=== PATIENT | female | born 1990 | race Caucasian/White ===

== ENCOUNTER 2020-07-30 07:18 | Outpatient (CLI) | payer OTHER, SELFPAY ==
--- NOTE | ~2020-07-30 | XR_ITS ---
XR hysterosalpingogram DATE: 07/30/2020 09:03 INDICATION: Fertility workup TECHNIQUE: Fluoroscopy was performed during a hysterosalpingogram procedure performed by the zeke martinez traffic inspector. COMPARISON: None FINDINGS: There is uterine deformity consistent with bicornuate or less likely septate uterus. Both fallopian tubes are opacified, of normal caliber and there is bilateral free peritoneal spillage . 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 Reviewed, dictated and finalized at [facility].
[2020-07-30 08:05] LABS: Beta HCG Quantitative < 2.39 mIU/ML
--- NOTE | 2020-07-30 08:54 | PM.PROC ---
Procedure Note - Detailed Date of procedure: 07/30/20 Pre-op diagnosis: infertility Post-op diagnosis: same Procedure performed: Hysterosalpingogram Description of procedure: Patient was on the fluoroscopic table. A speculum was placed in the vagina. The cervix was cleaned with Betadine. A catheter was placed the intrauterine cavity and the balloon was inflated at the tip of the catheter. The radiologist was present and began to capture images. Radiopaque dye was then instilled into the intrauterine cavity. The above findings were noted. When dye injection was completed. The balloon catheter was collapsed and the catheter was withdrawn. A final image the into atrial cavity was captured. The speculum had been was drawn prior to injection of the dye. Speculum and catheter were removed completely. The procedure was terminated. Anesthesia: none Surgeon: Angelique Jones MD Estimated blood loss (mL): 0 Drains: No Packing: No Pathology: none sent Complications: No immediate complications Condition: stable Findings: Both tubes were patent, radiopaque dye was observed spilling into the pelvic cavity bilaterally at the end of the tubes. There was a normal-appearing endometrial cavity..
== END 2020-07-30 07:19 | disposition home or self-care (01) ==
PROVIDERS: Visit Provider Obstetrics & Gynecology
DX: N97.9 Female infertility, unspecified (principal)
CPT/HCPCS: 36415; 58340; 74740; 84702; Q9966

== ENCOUNTER 2022-02-28 16:26 | Outpatient (RCR) | payer BC, OTHER, SELFPAY | END 2022-05-29 23:59 | disposition home or self-care (01) | LOC: ANHLAB 16:26 | PROVIDERS: Visit Provider Advanced Practice Midwife | DX: O36.0130 Maternal care for anti-D [Rh] antibodies, third trimester, not applicable or unspecified (principal); Z3A.00 Weeks of gestation of pregnancy not specified | CPT/HCPCS: 36415; 85461; 86850; 86900; 86901 ==

== ENCOUNTER 2022-09-30 12:42 | Outpatient (CLI) | payer BC, OTHER, SELFPAY ==
[2022-09-30 13:27] VITALS: BP 124/75; PULSE 94
== END 2022-09-30 13:28 | disposition home or self-care (01) ==
LOC: ANHOBOP 13:25 → ANHLDR 13:25
PROVIDERS: Visit Provider Obstetrics & Gynecology
DX: O13.9 Gestational [pregnancy-induced] hypertension without significant proteinuria, unspecified trimester (principal)
CPT/HCPCS: 59025; 84112; 99199

== ENCOUNTER 2022-10-10 14:34 | Outpatient (CLI) | payer BC, OTHER, SELFPAY ==
[2022-10-10 14:55] VITALS: BP 132/82; PULSE 91
[2022-10-10 15:01] VITALS: BP 130/84; PULSE 92
[2022-10-10 15:29] LABS: Basophils Percent Auto 0.2 % (0.2-1.2); Eosinophils Absolute Auto 0.1 K/mm3 (0-0.3); Eosinophils Percent Auto 0.9 % (0-4.4); Hematocrit 35.8 % (37.0-47.0); Hemoglobin 11.7 g/dL (12.0-15.0); Immature Granulocyte Absolute 0.03 K/mm3 (0.00-0.031); Immature Granulocyte Percent A 0.3 % (0-0.5); Lymphocytes Percent Auto 17.9 % (18.3-44.2); Mean Corpuscular HGB Conc 32.7 g/dl (32-36); Mean Corpuscular Hemoglobin 29.8 pg (26-34); Mean Corpuscular Volume 91.1 fl (80-100); Mean Platelet Volume 11.9 fl (7.4-10.4); Monocytes Absolute Auto 0.5 K/mm3 (0.1-0.6); Monocytes Percent Auto 5.5 % (2.6-8.5); Neutrophils Absolute Auto 7.2 K/mm3 (1.3-6.7); Neutrophils Percent Auto 75.2 % (45.5-73.1); Platelet Count Result 207 k/mm3 (150-375); Red Blood Count 3.93 M/mm3 (4.2-5.4); Red Cell Distribution Width 13.8 % (11.5-14.5); White Blood Count 9.5 K/mm3 (4.5-10.0)
[2022-10-10 15:31] VITALS: BP 121/86; PULSE 86
[2022-10-10 15:42] LABS: Alanine Aminotransferase 14 U/L (6-35); Albumin Level 3.6 g/dL (3.5-5.1); Alkaline Phosphatase 119 U/L (38-126); Anion Gap 7 mmol/L (8-16); Aspartate Amino Transferase 18 U/L (14-36); Bilirubin,Total 0.3 mg/dL (0.2-1.3); Blood Urea Nitrogen 7 mg/dL (7-17); Calcium 8.6 mg/dL (8.4-10.2); Carbon Dioxide 22 mmol/L (22-30); Chloride 104 mmol/L (98-107); Estimated Glomerular Filt Rate > 60; Glucose 77 mg/dL (65-110); Potassium 3.9 mmol/L (3.4-5.0); Sodium 133 mmol/L (137-145); Uric Acid 5.1 mg/dL (2.5-7.5)
[2022-10-10 15:44] LABS: Appearance Urine Cloudy (Clear); Bacteria Urine 3+ /hpf; Bilirubin Urine Negative (Negative); Blood Urine Negative (Negative); Color Urine Dark Yellow (Yellow); Glucose Urine UA Negative (Negative); Ketones Urine Negative (Negative); Leukocyte Esterase Ur 1+ LEU/UL (NEGATIVE); Need Manual Microscopic Reviewed; Nitrate Urine Positive (Negative); Non Pathogenic Casts 0-2; Protein Urine 1+ mg/dL (Negative); Specific Grav Ur 1.028 (1.001-1.035); Squamous Epithelial Cell Urine Many /hpf (Few); WBC Urine 21-50 /hpf (0-3)
[2022-10-10 15:46] VITALS: BP 116/76; PULSE 82
[2022-10-10 15:46] LABS: Creatinine Urine 268.1 mg/dL; Total Protein Urine Random 7 mg/dL; Ur Ttl Prot Creatinine Ratio 0.03 mg/mg (0-0.20)
[2022-10-10 15:49] LABS: Add Urine Microscopic? YES
--- NOTE | 2022-10-10 15:57 | PC.NURSE ---
1555: LELIA Becker was called. RN reported maternal and status as well as lab results and VS to [facility]. Orders to discharge patient home.
[2022-10-10 15:59] VITALS: BP 116/76; PULSE 82
== END 2022-10-10 16:03 | disposition home or self-care (01) ==
LOC: ANHOBOP 14:42 → ANHOBPP 14:43
PROVIDERS: Advanced Practice Midwife; Visit Provider Obstetrics & Gynecology
DX: O26.899 Other specified pregnancy related conditions, unspecified trimester (principal); R03.0 Elevated blood-pressure reading, without diagnosis of hypertension
CPT/HCPCS: 36415; 59025; 80053; 81001; 82570; 84156; 84550; 85025; 87086; 87088; 99199

== ENCOUNTER 2022-10-14 16:29 | Inpatient (IN) | payer BC, OTHER, SELFPAY ==
[2022-10-14] VITALS (26 sets, daily range): BP systolic 120–152; BP diastolic 64–92; PULSE 71–91; BMI 40.1
--- NOTE | 2022-10-14 17:13 | LDADM ---
This patient, Emelina Frank, was admitted to Labor/Delivery/Recovery 108 on 10/14/22 at 16:29. Plans for labor, pain management and were discussed with patient. Patient/family oriented to hospital policies and general routines including ID bracelet, bed and alarms, visiting hours, pain management, procedures, bathroom and other care routines, personal items, smoking policy, room service/diet and guest tray routines, infant security routines, and visiting hours. Patient/Family are encouraged to report perceived risks to care and to ask questions if they do not understand what they are told or what they should do. See OBIX for further documentation.
--- NOTE | 2022-10-14 17:29 | P.PNAN_ITS ---
Anes - Eval Pre Procedure Procedure: labor epidural Date/Time: 10/14/22 17:29 Pre Op Diagnosis: Induction of Labor Patient Data Age: 32 Gender: F Height: 1.63 m Weight: 106 kg Last Vital Signs O2 Del Method Room Air 10/14/22 17:08 Allergies Allergy/AdvReac Type Severity Reaction Status Date / Time No Known Allergies Allergy Unknown Verified 03/16/16 11:12 Home Medications Medication Instructions Recorded Confirmed Type levothyroxine 100 mcg tablet 100 mcg PO DAILY 09/19/22 09/19/22 History prenat.vits,calista,[id number]-[id number] 1 tablet PO DAILY 10/14/22 10/14/22 History Patient hx anesthesia problems: none Family hx anesthesia problems: none Results Review: All pre-operative results and documents have been reviewed as part of the pre- operative evaluation. [facility] Past Medical History Medical History (Updated 10/14/22 @ 17:30 by Greta Linares CRNA) ADD (attention deficit disorder) Anxiety Eczema Hypothyroid Morbid obesity Social History Social History Smoking status: Never smoker Substance use: current Lack of Transportation: No Lack of Food: Never True Current Housing: I Have Housing Concerned About Future Housing: No Difficulty Paying Gas/Electric Bills: No Difficulty Paying for Meds: No Currently Unemployed: No Education: Master's Degree or Higher Difficulty w/ Childcare or Family Care: No Spiritual care concerns: No Exam Day of Procedure 10/14/22 17:29 Patient weight: morbidly obese Heart: regular rate and rhythm Lungs: clear to auscultation Airway: Mallampati scale Neurological: alert and oriented
[2022-10-14] MEDS: DINOPROSTONE 10 MG VAG INSERT VAGINAL (17:37)
[2022-10-14 17:46] LABS: Basophils Percent Auto 0.1 % (0.2-1.2); Eosinophils Absolute Auto 0.1 K/mm3 (0-0.3); Eosinophils Percent Auto 1.4 % (0-4.4); Hematocrit 35.3 % (37.0-47.0); Hemoglobin 11.6 g/dL (12.0-15.0); Immature Granulocyte Absolute 0.03 K/mm3 (0.00-0.031); Immature Granulocyte Percent A 0.4 % (0-0.5); Lymphocytes Absolute Auto 1.52 K/mm3 (0.9-3.2); Lymphocytes Percent Auto 19.9 % (18.3-44.2); Mean Corpuscular HGB Conc 32.9 g/dl (32-36); Mean Corpuscular Volume 91.2 fl (80-100); Mean Platelet Volume 11.9 fl (7.4-10.4); Monocytes Absolute Auto 0.4 K/mm3 (0.1-0.6); Monocytes Percent Auto 5.6 % (2.6-8.5); Neutrophils Absolute Auto 5.6 K/mm3 (1.3-6.7); Neutrophils Percent Auto 72.6 % (45.5-73.1); Platelet Count Result 198 k/mm3 (150-375); Red Blood Count 3.87 M/mm3 (4.2-5.4); Red Cell Distribution Width 14.3 % (11.5-14.5); White Blood Count 7.7 K/mm3 (4.5-10.0)
[2022-10-15] VITALS (194 sets, daily range): BP systolic 103–153; BP diastolic 57–98; PULSE 64–114; TEMP 36.2–37.9; O2SAT 99–100
[2022-10-15] MEDS: fentaNYL CITRATE INJ (*CRX) 100 MCG/2 ML VIAL 50 MCG IV PUSH (05:12)
[2022-10-15] MEDS: LACTATED RINGERS 1,000 ML 125 ML IV CONT ×4 (05:51→23:26)
[2022-10-15] MEDS: OXYTOCIN 30 UNITS/NS 500 ML 30 UNITS/500 ML BAG 6 UNITS IV CONT (05:51)
[2022-10-15 07:11] LABS: Rapid Plasma Reagin Non-Reactive (NonReactive)
--- NOTE | 2022-10-15 07:28 | WPDOBADMIT ---
Obstetrics - Admit Note Admission Note: record reviewed. No pertinent additions to the history and/or any subsequent changes in the physical findings that are not consistent with the expected course of the were found. IOL, elective, IUI, anticipate vaginal delivery Additions to the history and/or subsequent changes in the physical findings follow. None.
--- NOTE | 2022-10-15 10:55 | PM.OBPNLAB ---
Pain Control Date/time seen: 10/15/22 10:55 SVE 1-2/70/-2, AROM large amount of clear, odorless fluid, IUPC placed
--- NOTE | 2022-10-15 12:58 | PC.NURSE ---
1156 - Introductions were made and mother shared how she would like to feed her baby with breastfeed and bottle feeding if necessary. Encouraged mother to place infant [id number] until the first feeding if infant is stable and to wait on the weight to help stabilize, reduce stress, and improve latching by allowing infant time to explore parent's chest using instincts. Education was shared on how to protect her milk supply with latching and/or using hand expression to remove milk if infant doesn't latch in the first hour, then finger feed colostrum to the to preserve breast focus. Demonstration given on how to hand express using tool. Resources provided with educational trifold for bonding and feeding infant. Parents voiced understanding of information and to call if there is a request for assistance.
[2022-10-15] MEDS: ONDANSETRON INJ 4 MG/2 ML VIAL IV PUSH (16:14)
[2022-10-15] MEDS: diphenhydrAMINE HCl INJ 50 MG/ML VIAL 25 MG IV PUSH (23:20)
[2022-10-15] MEDS: ACETAMINOPHEN 500 MG TABLET 1000 MG PO (23:20)
[2022-10-16] VITALS (273 sets, daily range): BP systolic 104–172; BP diastolic 48–140; PULSE 70–264; RESP 11–20; TEMP 36.3–37.4; O2SAT 93–100
[2022-10-16] MEDS: AMPICILLIN 2 GM/NS 100 ML 2 GM/100 ML BAG IVPB (04:58)
[2022-10-16] MEDS: LACTATED RINGERS 1,000 ML 125 ML IV CONT (05:22)
[2022-10-16] MEDS: AMPICILLIN 1 GM/NS 50 ML 1 GM/50 ML BAG IVPB (08:53)
--- NOTE | 2022-10-16 13:06 | PM.IMHP ---
H&P: HPI History of Present Illness Date/Time: 10/16/22 13:06 Chief Complaint: Term Narrative: 32-year-old 1 at term who was induced. She has failed to progress, failure to descend, nonreassuring heart tones. We agreed to perform delivery. There patient understands the procedure. She understands the risks, and understands that there is possibility of injuries. She denies injuries can result in hospitalization, more surgery, and severe illness. She understands risk of hemorrhage and infection. She denies any chest pain or shortness of breath. She denies any nausea, vomiting, fever, chills. Review of Systems Review of Systems: All systems reviewed & are unremarkable except as noted in HPI and below Constitutional: Constitutional: Denies chills, Denies fatigue, Denies fever(s) and Denies weakness Eyes: Eyes: Denies blurry vision, Denies change in vision, Denies loss of peripheral vision, Denies loss of vision, Denies other visual disturbances and Denies eye pain ENT: Denies vertigo, Denies dizziness, Denies hearing loss, Denies mouth pain, Denies nasal obstruction, Denies neck mass and Denies neck pain Cardiovascular: Cardiovascular: Denies chest pain, Denies diaphoresis, Denies syncope, Denies leg edema and Denies dyspnea Respiratory: Respiratory: Denies chest congestion, Denies cough, Denies hemoptysis, Denies dyspnea and Denies wheezing Gastrointestinal: Gastrointestinal: Denies abdominal pain, Denies constipation, Denies diarrhea, Denies nausea and Denies vomiting Genitourinary: Genitourinary: Denies hematuria, Denies change in libido, Denies nocturia, Denies genital lesions, Denies flank pain and Denies urinary urgency Musculoskeletal: Musculoskeletal: Denies abnormal gait, Denies back pain, Denies myalgias, Denies arthralgias, Denies joint swelling, Denies muscle weakness and Denies neck pain Integumentary/Breasts: Skin/Breast: Denies swelling, Denies breast pain, Denies breast mass, Denies dry skin, Denies nipple discharge, Denies unusual bruising and Denies jaundice Neurologic: Denies Neuro-related abnormal movements, Denies Abnormal speech present, Denies abnormal gait, Denies behavioral changes, Denies confusion, Denies vertigo, Denies dizziness, Denies syncope, Denies loss of vision, Denies memory loss, Denies convulsions and Denies weakness Psychiatric: Psychiatric: Denies abnormal sleep pattern, Denies behavioral changes, Denies change in libido, Denies confusion, Denies depression, Denies anhedonia and Denies memory loss Endocrine: Endocrine: Reports no additional endocrine complaints, Denies change in libido and Denies fatigue Hematologic/Lymphatic: Hematologic/Lymphatic: Reports no additional hematologic/lymphatic complaints Allergic/Immunologic: Allergic/Immunologic: Reports no additional allergic/immunologic complaints and Denies wheezing PMFSH Past Medical History Medical History (Updated 10/16/22 @ 13:09 by Angelique Jones MD) ADD (attention deficit disorder) Anxiety Eczema Hypothyroid Morbid obesity Social History Social History Smoking status: Never smoker Substance use: current Lack of Transportation: No Lack of Food: Never True Current Housing: I Have Housing Concerned About Future Housing: No Difficulty Paying Gas/Electric Bills: No Difficulty Paying for Meds: No Currently Unemployed: No Education: Master's Degree or Higher Difficulty w/ Childcare or Family Care: No Spiritual care concerns: No Meds Home Medications and Allergies Home Medications Medication Instructions Recorded Confirmed Type levothyroxine 100 mcg tablet 100 mcg PO DAILY 09/19/22 09/19/22 History prenat.vits,calista,cpu-[id number]-[id number] 1 tablet PO DAILY 10/14/22 10/14/22 History Allergies Allergy/AdvReac Type Severity Reaction Status Date / Time No Known Allergies Allergy Unknown Verified 03/16/16 11:12
--- NOTE | 2022-10-16 13:51 | P.OP_ITS ---
Procedure Note - Detailed Date of Procedure 10/16/22 Pre-op Diagnosis failure to descend, nonreassuring heart tone Post-op Diagnosis Same ( malposition of the head) Procedure Performed Low-transverse section Surgeon Angelique Jones MD Anesthesia Spinal Indications failed to descend, nonreassuring heart tone Findings Normal gestational maternal anatomy, average size infant, normal Apgars. occiput posterior position of the Description of Procedure The patient was taken the operating room. She was prepped and draped in dorsal supine position with a leftward tilt. This was done after spinal anesthetic was applied. A low-transverse skin incision was made and carried down till of the fascia with the knife. The fascial incision was made with the knife. The fascial incision was extended laterally with Morillo scissors. The fascia was tented upward superiorly and inferiorly the rectus muscles were dissected off bluntly. The rectus muscles were the midline. The preperitoneal fat and peritoneum were dissected open bluntly at the superior aspect of the rectus muscles. The peritoneal incision was extended superior and inferior with good position of bladder. The uterine incision was made with a scalpel down to the level of the amniotic cavity. The amniotic cavity was entered bluntly. The was delivered. The cord was clamped and cut and t he infant was handed off to waiting pediatric staff. Cord bloods were obtained. The placenta was removed manually. The uterus was exteriorized. The uterus was cleared of all clots, debris and membranes. The uterus was closed in 0 Vicryl running lock fashion. An imbricating over a was placed along the incision line as well. The uterus was returned to the abdomen. The gutters were cleared of all clots and debris. The fascia was closed with 0 Vicryl running fashion. The subcutaneous tissue was irrigated pinpoint bleeders were cauterized. The skin was closed with subcuticular absorbable airam. The skin incision line was covered with glue. The patient tolerated the procedure well. She has taken recovery room in stable condition. Sponge lap and needle counts were correct x2. Estimated Blood Loss 350 Complications No immediate complications Condition Stable Disposition PACU
[2022-10-16] MEDS: KETOROLAC 30 MG/ML VIAL (*BKC) IV PUSH ×2 (14:53→21:35)
[2022-10-16] MEDS: OXYTOCIN 30 UNITS/NS 500 ML 30 UNITS/500 ML BAG 125 UNITS IV CONT (14:54)
--- NOTE | 2022-10-16 16:33 | PC.NURSE ---
Patient transferred to post room #290 via stretcher. Support person present. Oriented to unit, room, information board, rooming in, admission packet and security measures. Patient verbalizes understanding.
[2022-10-16] MEDS: ACETAMINOPHEN 325 MG TABLET 650 MG PO (20:01)
[2022-10-16] MEDS: DOCUSATE SODIUM 100 MG CAPSULE PO (20:01)
[2022-10-16] MEDS: DEXTROSE 5%/0.45% SOD CHL 1,000 ML 125 ML IV CONT (20:05)
[2022-10-17 01:06] LABS: Basophils Percent Auto 0.3 % (0.2-1.2); Eosinophils Absolute Auto 0.1 K/mm3 (0-0.3); Eosinophils Percent Auto 1.3 % (0-4.4); Hematocrit 30.4 % (37.0-47.0); Hemoglobin 9.8 g/dL (12.0-15.0); Immature Granulocyte Absolute 0.06 K/mm3 (0.00-0.031); Immature Granulocyte Percent A 0.5 % (0-0.5); Lymphocytes Absolute Auto 1.33 K/mm3 (0.9-3.2); Lymphocytes Percent Auto 12.1 % (18.3-44.2); Mean Corpuscular HGB Conc 32.2 g/dl (32-36); Mean Corpuscular Hemoglobin 30.2 pg (26-34); Mean Corpuscular Volume 93.5 fl (80-100); Monocytes Absolute Auto 0.4 K/mm3 (0.1-0.6); Monocytes Percent Auto 3.5 % (2.6-8.5); Neutrophils Absolute Auto 9.1 K/mm3 (1.3-6.7); Neutrophils Percent Auto 82.3 % (45.5-73.1); Platelet Count Result 166 k/mm3 (150-375); Red Blood Count 3.25 M/mm3 (4.2-5.4); Red Cell Distribution Width 14.2 % (11.5-14.5)
[2022-10-17] MEDS: ACETAMINOPHEN 325 MG TABLET 650 MG PO (02:45)
[2022-10-17] MEDS: KETOROLAC 30 MG/ML VIAL (*BKC) IV PUSH (02:56)
[2022-10-17 03:00] VITALS: BP 107/76; PULSE 88; RESP 18; TEMP 36.4; O2SAT 98
[2022-10-17] MEDS: LEVOTHYROXINE SODIUM 100 MCG TABLET PO (07:33)
--- NOTE | 2022-10-17 07:33 | PM.OBPNVD ---
OB - PN: Subj Subjective Date/time seen: 10/17/22 07:33 S/p section day 1 doing well pain well managed baby doing well flatus present OB - PN: Obj Data Labs 10/17/22 00:02 Labs: Laboratory Results - last 24 hr 10/17/22 00:02 WBC 11.0 H RBC 3.25 L Hgb 9.8 L Hct 30.4 L MCV 93.5 MCH 30.2 MCHC 32.2 RDW 14.2 Plt Count 166 MPV 12.0 H Immature Gran % (Auto) 0.5 Neut % (Auto) 82.3 H Lymph % (Auto) 12.1 L [place] % (Auto) 3.5 Eos % (Auto) 1.3 Baso % (Auto) 0.3 Lymph # (Auto) 1.33 [place] # (Auto) 0.4 Eos # (Auto) 0.1 Baso # (Auto) 0.0 Abs Immat Gran (auto) 0.06 H Absolute Neuts (auto) 9.1 H Absolute Nucleated RBC 0.0 Nucleated RBC % 0.0 OB - PN A/P Plan day: 1 Plan: routine care Time Spent With Patient Time: Total time spent is greater than 50% in coordination of care (as documented) at patient's floor/unit and/or counseling patient: Review of Systems Review of Systems: All systems reviewed & are unremarkable except as noted in HPI and below Exam Const: General: cooperative, healthy appearing and comfortable Chest: Chest palpation & inspection: normal inspection of the chest Resp: Effort & Inspection: normal respiratory effort Cardio: Rate: regular rate Rhythm: regular rhythm GI: Other: soft incision CDI Skin: General skin exam: normal color Extrem: Right lower extremity: normal to inspection Left lower extremity: normal to inspection
[2022-10-17 07:45] VITALS: BP 103/67; PULSE 73; RESP 18; TEMP 36; O2SAT 98
--- NOTE | 2022-10-17 09:04 | WPDANLDPN2 ---
Anes-Prog Note L&D Date/Time: 10/17/22 09:04 Comfortable throughout: labor and delivery Neuraxial method: epidural Epidural/Spinal procedure site: clean & non-tender Neuro status: Neuro function grossly intact. Cardiovascular status: normal Respiratory status: normal Airway patency: baseline Mental status: baseline Post-Op hydration status: normal Vital Signs: Last Vital Signs Temp 96.8 F L 10/17/22 07:45 Pulse 73 10/17/22 07:45 Resp 18 10/17/22 07:45 BP 103/67 10/17/22 07:45 Pulse Ox 98 10/17/22 07:45 O2 Del Method Room Air 10/17/22 03:00 Pain score (VAS): 0/10 I/O: Intake & Output 10/16/22 10/17/22 10/17/22 23:59 07:59 15:59 Intake Total 500 1080 Output Total 383 800 Balance 117 280 Post-procedural complaints: none Patient feedback: Patient satisfied with anesthetic care.
--- NOTE | 2022-10-17 09:05 | WPDANLDNPN2 ---
Anes-Prog Note L&D-Neuraxial Date/Time: 10/17/22 09:05 Neuraxial medications: epidural PF morphine Opiod-related complaints: none Patient feedback: Patient satisfied with post-operative pain management.
[2022-10-17] MEDS: DOCUSATE SODIUM 100 MG CAPSULE PO ×2 (09:17→15:21)
[2022-10-17] MEDS: POLYSACCHARIDE IRON COMPLEX 150 MG CAPSULE PO ×2 (09:17→15:21)
[2022-10-17] MEDS: IBUPROFEN 600 MG TABLET PO ×3 (09:18→22:12)
[2022-10-17] MEDS: SIMETHICONE 80 MG TAB.CHEW PO ×2 (09:18)
[2022-10-17] MEDS: HYDROcodone/acetaminophen (*CRX) 5-325 MG TABLET 1 TAB PO ×3 (09:18→22:13)
[2022-10-17 20:00] VITALS: BP 125/75; PULSE 88; RESP 18; TEMP 36.6; O2SAT 100
[2022-10-18] MEDS: HYDROcodone/acetaminophen (*CRX) 5-325 MG TABLET 1 TAB PO ×5 (03:18→23:28)
[2022-10-18] MEDS: IBUPROFEN 600 MG TABLET PO ×3 (03:18→23:29)
[2022-10-18] MEDS: SIMETHICONE 80 MG TAB.CHEW PO ×5 (03:22→23:28)
[2022-10-18 08:00] VITALS: BP 133/81; PULSE 90; RESP 16; TEMP 36.8
[2022-10-18] MEDS: POLYSACCHARIDE IRON COMPLEX 150 MG CAPSULE PO ×3 (08:00→17:30)
[2022-10-18] MEDS: DOCUSATE SODIUM 100 MG CAPSULE PO ×2 (08:00→17:22)
[2022-10-18] MEDS: MULTIVIT/MIN/PREN/FOL AC/IRON TABLET 1 TAB PO (08:00)
[2022-10-18] MEDS: LEVOTHYROXINE SODIUM 100 MCG TABLET PO (08:00)
--- NOTE | 2022-10-18 08:42 | PM.OBPNVD ---
OB - PN: Subj Subjective Date/time seen: 10/18/22 08:42 s/p section day 2 unsure if would like to be d/c this afternoon occ gas/incisional pain baby doing well flatus present OB - PN: Obj Data Labs 10/17/22 00:02 OB - PN A/P Plan day: 2 Plan: routine care Comments: may be d/c'd home this evening if pt desires Time Spent With Patient Time: Total time spent is greater than 50% in coordination of care (as documented) at patient's floor/unit and/or counseling patient: Review of Systems Review of Systems: All systems reviewed & are unremarkable except as noted in HPI and below Exam Const: General: cooperative, healthy appearing and comfortable Chest: Chest palpation & inspection: normal inspection of the chest Resp: Effort & Inspection: normal respiratory effort Cardio: Rate: regular rate Rhythm: regular rhythm GI: Other: Incision CDI Skin: General skin exam: normal color Neuro: General: patient oriented x3 Extrem: Right lower extremity: normal to inspection Left lower extremity: normal to inspection Psych: Appearance: grossly normal
[2022-10-18 17:00] VITALS: BP 131/81; PULSE 64; RESP 16; TEMP 37.1
[2022-10-18 20:45] VITALS: BP 130/83; PULSE 74; RESP 16; TEMP 36.9; O2SAT 100
[2022-10-19] MEDS: HYDROcodone/acetaminophen (*CRX) 5-325 MG TABLET 1 TAB PO ×2 (05:56→11:31)
[2022-10-19] MEDS: IBUPROFEN 600 MG TABLET PO (05:56)
[2022-10-19] MEDS: SIMETHICONE 80 MG TAB.CHEW PO ×2 (05:57→11:15)
[2022-10-19] MEDS: LEVOTHYROXINE SODIUM 100 MCG TABLET PO (05:59)
[2022-10-19 08:00] VITALS: BP 125/87; PULSE 78; RESP 14; TEMP 36.5; O2SAT 100
--- NOTE | 2022-10-19 08:25 | PM.OBPNVD ---
OB - PN: Subj Subjective Date/time seen: 10/19/22 08:25 s/p vaginal delivery day 3 d/c home pain well managed baby doing well OB - PN: Obj Data Labs 10/17/22 00:02 OB - PN A/P Time Spent With Patient Time: Total time spent is greater than 50% in coordination of care (as documented) at patient's floor/unit and/or counseling patient: Review of Systems Review of Systems: All systems reviewed & are unremarkable except as noted in HPI and below Exam Const: General: cooperative, healthy appearing and comfortable Chest: Chest palpation & inspection: normal inspection of the chest Resp: Effort & Inspection: normal respiratory effort GI: Other: soft incision CDI Extrem: Right lower extremity: normal to inspection Left lower extremity: normal to inspection
--- NOTE | 2022-10-19 08:34 | P.DS_ITS ---
DS: Admitting Diagnosis Discharge Date 10/19/22 Admitting Diagnosis IOL OB - DS: Summary OB Procedures : None OB Procedures Intrapartum: OB Procedures: : None Peripartum Data Procedures: Procedures Operation Date: 10/16/22 13:30 Actual Procedure Side Surgeon p Section Bilateral Angelique Stauffer MD Time Spent with Patient Time attestation: Total time spent providing and/or coordinating discharge services: DS: Data Data Completed and Pending Pending studies at discharge: Pending at discharge 10/16/22 13:34 Surgical [PTH] Routine Discharge Plan Discharge Attending physician on discharge: Angelique Stauffer Discharging Clinician: Huma Becker Patient Disposition: Home, Self-Care Activity: pelvic rest Diet: regular Patient Instructions: Antibiotic Form Stand Alone Forms: General Discharge Information Follow-up/Referrals: Huma Becker, CNM [Certified Nurse [employer] Clerk] - 1 Week ([address] stauffer 4 week pp with rancho) Discharge Medications: New hydrocodone-acetaminophen 5-325 mg Tablet 1 tablet PO Q3H PRN (Reason: Moderate Pain (4-6)) Qty: 30 0RF Continued levothyroxine 100 mcg Tablet 100 mcg PO DAILY Vitamin Tablet 1 tablet PO DAILY Date of admission: 10/14/22 16:29 Primary Care Provider: PHYSICIAN,CRITICAL CARE CNS Admitting Provider: Angelique Stauffer Attending physician on admission: Angelique Stauffer Condition: Stable
[2022-10-19] MEDS: DOCUSATE SODIUM 100 MG CAPSULE PO (11:15)
[2022-10-19] MEDS: MULTIVIT/MIN/PREN/FOL AC/IRON TABLET 1 TAB PO (11:15)
[2022-10-19] MEDS: POLYSACCHARIDE IRON COMPLEX 150 MG CAPSULE PO (11:30)
[2022-10-21 11:14] VITALS: BP 140/82; PULSE 87; RESP 18; TEMP 37; O2SAT 100
== END 2022-10-19 11:23 | disposition home or self-care (01) | DRG 788 ==
LOC: ANHLDR 16:34 → ANHOB2 10-16 16:36
PROVIDERS: Advanced Practice Midwife; Admitting Provider Obstetrics & Gynecology; Visit Provider Obstetrics & Gynecology
PROC: 10D00Z1 Extraction of Products of Conception, Low, Open Approach (ICD-10-PCS; CPT 59514; principal; 2022-10-16 13:30)
DX: O62.2 Other uterine inertia (principal); O76 Abnormality in fetal heart rate and rhythm complicating labor and delivery; O32.8XX0 Maternal care for other malpresentation of fetus, not applicable or unspecified; Z3A.39 39 weeks gestation of pregnancy; Z37.0 Single live birth
CPT/HCPCS: 36415; 85025; 86592; 86850; 86900; 86901; 88307; A9270; J0290; J1200; J1885; J2001; J2274; J2405; J2590; J2795; J3010; J7120

== ENCOUNTER 2023-09-09 08:42 | Emergency (ER) | payer BC, OTHER, SELFPAY ==
[2023-09-09 08:48] VITALS: BP 143/81; PULSE 98; RESP 18; TEMP 36.5; O2SAT 99
[2023-09-09 09:04] VITALS: BP 143/81; PULSE 98; RESP 18; TEMP 36.5; O2SAT 99
--- NOTE | 2023-09-09 09:08 | ED.URI ---
HPI - URI/Sore Throat General Chief Complaint: Upper Respiratory Infection Stated Complaint: Sore Throat Time Seen by Provider: 09/09/23 09:01 Source: patient and RN notes reviewed Mode of arrival: ambulatory Limitations: no limitations History of Present Illness HPI Narrative: Patient presents today a sore throat since last night with nausea and 1 episode of vomiting, fatigue. Denies fever, shortness of breath, difficulty swallowing. Currently rates her pain 6/10, which increases with swallowing. She has tried no [id number] treatment prior to arrival. Related Data Home Medications Medication Instructions Recorded Confirmed sertraline 100 mg tablet 100 mg PO DAILY 09/09/23 09/09/23 Allergies Allergy/AdvReac Type Severity Reaction Status Date / Time No Known Allergies Allergy Unknown Verified 09/09/23 08:52 Review of Systems Review of Systems: CONSTITUTIONAL: Denies body aches, fever, chills, or sweats.+ fatigue EYES: Denies visual changes, redness, or discharge. ENT: Denies rhinorrhea, congestion, or otalgia.+ sore throat CARDIOVASCULAR: Denies chest pain, palpitations, or edema. RESPIRATORY: Denies cough or dyspnea. GASTROINTESTINAL: Denies abdominal pain, or diarrhea.+ nausea, vomiting GENITOURINARY: Denies dysuria or hematuria. SKIN: Denies rash, itching, or wounds. MUSCULOSKELETAL: Denies back pain, joint pain, or myalgia. NEUROLOGIC: Denies headache, numbness, tingling, or weakness. PSYCH: Denies depression or anxiety. [facility] Past Medical History Medical History ADD (attention deficit disorder) Anxiety Eczema Hypothyroid Morbid obesity Social History Social History Smoking status: Never smoker Substance use: current Lack of Transportation: No Lack of Food: Never True Current Housing: I Have Housing Concerned About Future Housing: No Difficulty Paying Gas/Electric Bills: No Difficulty Paying for Meds: No Currently Unemployed: No Education: Master's Degree or Higher Difficulty w/ Childcare or Family Care: No Spiritual care concerns: No Comments At time of signature, I have reviewed and agree with nursing past medical, surgical, social and family history unless otherwise noted. Please see nursing chart for further information. There is no relevant family history pertinent to the presenting complaint Exam Narrative: GENERAL: Well-appearing, well-nourished, and in no acute distress. HEAD: Normocephalic, atraumatic. EYES: EOMI. No redness or drainage. Conjunctivae normal. ENT: Mucous membranes pink and moist. Nares clear. No rhinorrhea. TMs normal bilaterally. Throat erythematous. Tonsils 3+ with moderate white exudate. Uvula midline. NECK: Normal AROM. Supple. Bilateral tonsillar lymphadenopathy CHEST: No respiratory distress. Clear to auscultation. HEART: Regular rate and rhythm. No murmur appreciated. EXTREMITIES: Normal range of motion. No edema. SKIN: Warm, dry, no rash. Capillary refill normal. Normal skin turgor. NEURO: No focal deficits. Alert and oriented x3. Gait steady. PSYCH: Normal affect. No signs of depression or anxiety. Course Course Level of Care: Express Care Visit Vital Signs Vital signs: Vital Signs Temperature 97.7 F 09/09/23 08:48 Pulse Rate 98 09/09/23 08:48 Respiratory Rate 18 09/09/23 08:48 Blood Pressure 143/81 H 09/09/23 08:48 Pulse Oximetry 99 09/09/23 08:48 Oxygen Delivery Room Air 09/09/23 08:48 Temperature 97.7 F 09/09/23 09:04 Pulse Rate 98 09/09/23 09:04 Respiratory Rate 18 09/09/23 09:04 Blood Pressure 143/81 H 09/09/23 09:04 Pulse Oximetry 99 09/09/23 09:04 Oxygen Delivery Room Air 09/09/23 09:04 Reviewed MDM - URI/Sore Throat MDM Narrative Medical decision making narrative: Rapid strep negative. Culture pending. Symptoms likely
== END 2023-09-09 09:22 | disposition home or self-care (01) ==
PROVIDERS: Emergency Provider Nurse Practitioner
DX: J02.9 Acute pharyngitis, unspecified (principal); E03.9 Hypothyroidism, unspecified; E66.01 Morbid (severe) obesity due to excess calories; Z68.39 Body mass index [BMI] 39.0-39.9, adult; F41.9 Anxiety disorder, unspecified
CPT/HCPCS: 87081; 87880; 99213; G0463

== ENCOUNTER 2024-11-22 20:26 | Observation (INO) | payer BC, OTHER, SELFPAY ==
[2024-11-22 20:46] VITALS: BP 116/68; PULSE 81
[2024-11-22 21:01] VITALS: BP 110/49; PULSE 80; BMI 41.2
[2024-11-22 21:16] VITALS: BP 108/66; PULSE 72
[2024-11-22 21:28] LABS: Add Urine Microscopic? NO; Appearance Urine Clear (Clear); Glucose Urine UA Negative (Negative); Leukocyte Esterase Ur Negative LEU/UL (Negative); Nitrate Urine Negative (Negative); Specific Grav Ur 1.018 (1.001-1.035)
[2024-11-22 21:31] VITALS: BP 108/61; PULSE 78
--- NOTE | 2024-11-22 21:43 | OBADM ---
This patient, Emelina Frank, admitted to the OB room OB Post 117 for observation. Patient/family oriented to hospital policies and general routines including ID bracelet, bed and alarms, visiting hours, pain management, procedures, bathroom and other care routines, personal items, smoking policy, room service/diet, and visiting hours. Patient/Family are encouraged to report perceived risks to care and to ask questions if they do not understand what they are told or what they should do.
--- NOTE | 2024-11-25 14:43 | PM.OBTRLD ---
OB - Triage/Final Diagnosis Visit Information Comments/Additional reasons for admission: I have assessed the risk for this patient, Emelina Frank, and determined that she would benefit from observation care. Evaluation Laboratory results: Laboratory Tests 11/22/24 21:15 Urine Color Yellow Urine Appearance Clear Urine pH 6.5 Ur Specific [place] 1.018 Urine Protein Negative Urine Glucose (UA) Negative Urine Ketones Trace H Ur Blood (Man) Negative Urine Nitrate Negative Urine Bilirubin Negative Urine Urobilinogen 0.2 Leukocyte Esterase Rfl Negative Final Diagnosis (1) Irregular contractions: Code(s): O47.9 - False labor, unspecified Status: Acute
== END 2024-11-22 22:00 | disposition home or self-care (01) ==
PROVIDERS: Admitting Provider Obstetrics & Gynecology; Visit Provider Obstetrics & Gynecology
DX: O47.03 False labor before 37 completed weeks of gestation, third trimester (principal); Z3A.31 31 weeks gestation of pregnancy
CPT/HCPCS: 81003; G0378; G0379

== ENCOUNTER 2024-12-21 16:28 | Outpatient (CLI) | payer BC, OTHER, SELFPAY ==
[2024-12-21 16:30] VITALS: BP 121/66; PULSE 79
[2024-12-21 17:23] VITALS: BP 121/66; PULSE 75
[2024-12-21 17:31] VITALS: BP 113/69; PULSE 71
[2024-12-21 18:16] LABS: Hematocrit 33.9 % (37.0-47.0); Hemoglobin 11.2 g/dL (12.0-15.0); Immature Granulocyte Percent A 0.4 % (0-0.5); Lymphocytes Absolute Auto 1.73 K/mm3 (0.9-3.2); Mean Corpuscular HGB Conc 33.0 g/dl (32-36); Mean Corpuscular Hemoglobin 30.2 pg (26-34); Mean Corpuscular Volume 91.4 fl (80-100); Nucleated Red Blood Cells Absolute Auto 0.000 K/mm3 (0.0-0.012); Nucleated Red Blood Cells Perc 0.0 % (0.0-0.2); Platelet Count Result 191 k/mm3 (150-375); Red Blood Count 3.71 M/mm3 (4.2-5.4); White Blood Count 7.8 K/mm3 (4.5-10.0)
[2024-12-21 18:27] LABS: Alanine Aminotransferase 9 U/L (6-35); Albumin Level 3.3 g/dL (3.5-5.1); Alkaline Phosphatase 77 U/L (38-126); Anion Gap 4 mmol/L (4-12); Aspartate Amino Transferase 17 U/L (14-36); Bilirubin,Total 0.3 mg/dL (0.2-1.3); Blood Urea Nitrogen 6 mg/dL (7-17); Calcium 8.7 mg/dL (8.4-10.2); Carbon Dioxide 23 mmol/L (22-30); Chloride 106 mmol/L (98-107); Estimated Glomerular Filt Rate > 60; Glucose 82 mg/dL (65-110); Potassium 3.9 mmol/L (3.4-5.0); Sodium 133 mmol/L (137-145); Total Protein 6.6 g/dL (6.3-8.2); Uric Acid 4.2 mg/dL (2.5-7.5)
[2024-12-21 18:33] LABS: Total Protein Urine Random < 5 mg/dL; Ur Ttl Prot Creatinine Ratio < 0.04 mg/mg (0-0.20)
[2024-12-21 19:10] LABS: Add Urine Microscopic? YES; Appearance Urine Turbid (Clear); Glucose Urine UA Negative (Negative); Leukocyte Esterase Ur Trace LEU/UL (Negative); Need Manual Microscopic Reviewed; Nitrate Urine Negative (Negative); Non Pathogenic Casts 0-2; Specific Grav Ur 1.023 (1.001-1.035)
== END 2024-12-21 18:05 | disposition home or self-care (01) ==
LOC: ANHOBOP 16:33 → ANHOBPP 16:35
PROVIDERS: Visit Provider Advanced Practice Midwife
DX: O13.9 Gestational [pregnancy-induced] hypertension without significant proteinuria, unspecified trimester (principal); Z3A.00 Weeks of gestation of pregnancy not specified
CPT/HCPCS: 36415; 59025; 80053; 81001; 82570; 84156; 84550; 85025; 99199

== ENCOUNTER 2024-12-24 21:15 | Outpatient (CLI) | payer BC, OTHER, SELFPAY ==
[2024-12-24 21:26] VITALS: TEMP 36.6
[2024-12-24 21:57] LABS: Total Protein Urine Random 8 mg/dL; Ur Ttl Prot Creatinine Ratio 0.03 mg/mg (0-0.20)
[2024-12-24 21:58] VITALS: BP 140/77; PULSE 77
[2024-12-24 22:09] LABS: Hematocrit 33.0 % (37.0-47.0); Hemoglobin 10.9 g/dL (12.0-15.0); Immature Granulocyte Percent A 0.4 % (0-0.5); Lymphocytes Absolute Auto 1.89 K/mm3 (0.9-3.2); Mean Corpuscular HGB Conc 33.0 g/dl (32-36); Mean Corpuscular Hemoglobin 29.9 pg (26-34); Mean Corpuscular Volume 90.7 fl (80-100); Nucleated Red Blood Cells Absolute Auto 0.000 K/mm3 (0.0-0.012); Nucleated Red Blood Cells Perc 0.0 % (0.0-0.2); Platelet Count Result 183 k/mm3 (150-375); Red Blood Count 3.64 M/mm3 (4.2-5.4); White Blood Count 7.7 K/mm3 (4.5-10.0)
[2024-12-24 22:17] VITALS: BP 128/68; PULSE 75
[2024-12-24 22:25] LABS: Add Urine Microscopic? YES; Appearance Urine Cloudy (Clear); Glucose Urine UA Negative (Negative); Leukocyte Esterase Ur Negative LEU/UL (Negative); Need Manual Microscopic Reviewed; Nitrate Urine Negative (Negative); Non Pathogenic Casts 0-2; Specific Grav Ur 1.032 (1.001-1.035)
[2024-12-24 22:28] LABS: Alanine Aminotransferase 11 U/L (6-35); Albumin Level 3.0 g/dL (3.5-5.1); Alkaline Phosphatase 73 U/L (38-126); Anion Gap 4 mmol/L (4-12); Aspartate Amino Transferase 18 U/L (14-36); Bilirubin,Total 0.2 mg/dL (0.2-1.3); Blood Urea Nitrogen 7 mg/dL (7-17); Calcium 8.7 mg/dL (8.4-10.2); Carbon Dioxide 22 mmol/L (22-30); Chloride 109 mmol/L (98-107); Estimated Glomerular Filt Rate > 60; Glucose 106 mg/dL (65-110); Potassium 3.7 mmol/L (3.4-5.0); Sodium 135 mmol/L (137-145); Total Protein 6.2 g/dL (6.3-8.2); Uric Acid 4.5 mg/dL (2.5-7.5)
[2024-12-24 22:31] VITALS: BP 124/70; PULSE 75
[2024-12-24 22:46] VITALS: BP 127/74; PULSE 73
--- NOTE | 2024-12-24 22:49 | PC.NURSE ---
Call placed to Dr. Jones reported pt c/o High BP @ home 152/92, 141/86 and increased swelling. FHR, CTX, Vitals, No pitting edema noted, Labs. Order to d/c pt home undelivered and follow up on Thursday or Thursday with the office.
--- NOTE | 2024-12-24 22:51 | PC.NURSE ---
Pt discharged home undelivered in stable condition per order from Dr. Jones. Discharge instructions discussed with pt. Pt stated understanding, all questions and concerns answered. Pt has office appt on Thursday. Pt ambulated out of department with all belongings. S.O. @ pt side.
[2024-12-24 23:13] VITALS: BP 127/74; PULSE 73
== END 2024-12-24 22:52 | disposition home or self-care (01) ==
LOC: ANHOBOP 21:19 → ANHLDR 23:15
PROVIDERS: Obstetrics & Gynecology; Visit Provider Obstetrics & Gynecology
DX: O13.9 Gestational [pregnancy-induced] hypertension without significant proteinuria, unspecified trimester (principal); Z3A.00 Weeks of gestation of pregnancy not specified
CPT/HCPCS: 36415; 59025; 80053; 81001; 82570; 84156; 84550; 85025; 99199

== ENCOUNTER 2024-12-26 15:46 | Outpatient (CLI) | payer BC, OTHER, SELFPAY ==
[2024-12-26 16:23] LABS: Hematocrit 34.4 % (37.0-47.0); Hemoglobin 11.2 g/dL (12.0-15.0); Immature Granulocyte Percent A 0.3 % (0-0.5); Lymphocytes Absolute Auto 1.76 K/mm3 (0.9-3.2); Mean Corpuscular HGB Conc 32.6 g/dl (32-36); Mean Corpuscular Hemoglobin 29.5 pg (26-34); Mean Corpuscular Volume 90.5 fl (80-100); Nucleated Red Blood Cells Absolute Auto 0.000 K/mm3 (0.0-0.012); Nucleated Red Blood Cells Perc 0.0 % (0.0-0.2); Platelet Count Result 192 k/mm3 (150-375); Red Blood Count 3.80 M/mm3 (4.2-5.4); White Blood Count 9.1 K/mm3 (4.5-10.0)
[2024-12-26 16:25] VITALS: BP 130/76; PULSE 78
[2024-12-26 16:27] LABS: Add Urine Microscopic? YES; Appearance Urine Clear (Clear); Glucose Urine UA Negative (Negative); Leukocyte Esterase Ur Negative LEU/UL (Negative); Nitrate Urine Negative (Negative); Non Pathogenic Casts 0-2; Specific Grav Ur 1.030 (1.001-1.035)
[2024-12-26 16:31] VITALS: BP 120/71; PULSE 82
[2024-12-26 16:31] LABS: Total Protein Urine Random 6 mg/dL; Ur Ttl Prot Creatinine Ratio 0.03 mg/mg (0-0.20)
[2024-12-26 16:38] LABS: Alanine Aminotransferase 9 U/L (6-35); Albumin Level 3.3 g/dL (3.5-5.1); Alkaline Phosphatase 77 U/L (38-126); Anion Gap 8 mmol/L (4-12); Aspartate Amino Transferase 18 U/L (14-36); Bilirubin,Total 0.2 mg/dL (0.2-1.3); Blood Urea Nitrogen 8 mg/dL (7-17); Calcium 8.5 mg/dL (8.4-10.2); Carbon Dioxide 21 mmol/L (22-30); Chloride 105 mmol/L (98-107); Estimated Glomerular Filt Rate > 60; Glucose 78 mg/dL (65-110); Potassium 3.9 mmol/L (3.4-5.0); Sodium 134 mmol/L (137-145); Total Protein 6.8 g/dL (6.3-8.2); Uric Acid 4.2 mg/dL (2.5-7.5)
[2024-12-26 17:30] VITALS: BP 130/76; PULSE 78
== END 2024-12-26 17:00 | disposition home or self-care (01) ==
LOC: ANHOBOP 15:55 → ANHOBPP 15:55
PROVIDERS: Obstetrics & Gynecology; Visit Provider Obstetrics & Gynecology
DX: O13.9 Gestational [pregnancy-induced] hypertension without significant proteinuria, unspecified trimester (principal); Z3A.00 Weeks of gestation of pregnancy not specified
CPT/HCPCS: 36415; 59025; 80053; 81001; 82570; 84156; 84550; 85025; 99199

== ENCOUNTER 2024-12-31 13:29 | Outpatient (CLI) | payer BC, OTHER, SELFPAY ==
[2024-12-31 13:54] LABS: Hematocrit 34.4 % (37.0-47.0); Hemoglobin 11.2 g/dL (12.0-15.0); Immature Granulocyte Percent A 0.4 % (0-0.5); Lymphocytes Absolute Auto 1.40 K/mm3 (0.9-3.2); Mean Corpuscular HGB Conc 32.6 g/dl (32-36); Mean Corpuscular Hemoglobin 29.6 pg (26-34); Mean Corpuscular Volume 90.8 fl (80-100); Nucleated Red Blood Cells Absolute Auto 0.000 K/mm3 (0.0-0.012); Nucleated Red Blood Cells Perc 0.0 % (0.0-0.2); Platelet Count Result 175 k/mm3 (150-375); Red Blood Count 3.79 M/mm3 (4.2-5.4); White Blood Count 8.1 K/mm3 (4.5-10.0)
[2024-12-31 14:10] LABS: Alanine Aminotransferase 10 U/L (6-35); Albumin Level 3.0 g/dL (3.5-5.1); Alkaline Phosphatase 82 U/L (38-126); Anion Gap 6 mmol/L (4-12); Aspartate Amino Transferase 17 U/L (14-36); Bilirubin,Total 0.2 mg/dL (0.2-1.3); Blood Urea Nitrogen 5 mg/dL (7-17); Calcium 8.3 mg/dL (8.4-10.2); Carbon Dioxide 22 mmol/L (22-30); Chloride 106 mmol/L (98-107); Estimated Glomerular Filt Rate > 60; Glucose 84 mg/dL (65-110); Potassium 3.8 mmol/L (3.4-5.0); Sodium 134 mmol/L (137-145); Total Protein 6.5 g/dL (6.3-8.2)
[2024-12-31 14:36] LABS: Syphilis IgG/IgM Antibody Non-Reactive (Nonreactive)
== END 2024-12-31 13:30 | disposition home or self-care (01) ==
PROVIDERS: Visit Provider Obstetrics & Gynecology
DX: Z01.818 Encounter for other preprocedural examination (principal)
CPT/HCPCS: 36415; 80053; 85025; 86593; 86850; 86900; 86901

== ENCOUNTER 2025-01-02 08:24 | Inpatient (IN) | payer BC, OTHER, SELFPAY ==
[2025-01-02] VITALS (46 sets, daily range): BP systolic 97–151; BP diastolic 54–89; PULSE 45–85; RESP 14–18; TEMP 36.3–36.8; O2SAT 97–100; BMI 42.9
--- NOTE | 2025-01-02 08:24 | LDADM ---
This patient, Emelina Frank, was admitted to Labor/Delivery/Recovery 120 on 01/02/25 at 08:24. Plans for labor, pain management and were discussed with patient. Patient/family oriented to hospital policies and general routines including ID bracelet, bed and alarms, visiting hours, pain management, procedures, bathroom and other care routines, personal items, smoking policy, room service/diet and guest tray routines, infant security routines, and visiting hours. Patient/Family are encouraged to report perceived risks to care and to ask questions if they do not understand what they are told or what they should do. See OBIX for further documentation.
[2025-01-02] MEDS: ACETAMINOPHEN 500 MG TABLET 1000 MG PO ×3 (08:49→22:36)
[2025-01-02] MEDS: LACTATED RINGERS 1,000 ML 125 ML IV CONT ×2 (09:27→10:37)
--- NOTE | 2025-01-02 09:46 | WPDANESEPPF ---
Anes - Initial Pre Proc Eval Procedure: Operation Date: 01/02/25 10:30 Proposed Procedures p Repeat Section with Tubal Ligation - Weston Whitehead MD Date/Time: 01/02/25 09:46 Surgeon: Weston Whitehead MD Pre Op Diagnosis: c section Patient Data Age: 34 Gender: F Height: 1.63 m Weight: 113.5 kg Last Vital Signs Pulse 68 01/02/25 09:31 BP 151/88 H 01/02/25 09:31 Allergies Allergy/AdvReac Type Severity Reaction Status Date / Time No Known Allergies Allergy Unknown Verified 12/24/24 13:45 Home Medications ?Medication ?Instructions ?Recorded ?Confirmed ?Type sertraline 100 mg tablet 100 mg PO DAILY 09/09/23 12/24/24 History ferrous sulfate 325 mg (65 mg 65 mg PO DAILY 11/22/24 12/24/24 History iron) tablet (iron) vit no.95-ferrous 1 tablet PO DAILY 11/22/24 12/24/24 History fumarate 28 mg-folic acid 800 mcg tablet () Patient hx anesthesia problems: none Family hx anesthesia problems: none Results Review: All pre-operative results and documents have been reviewed as part of the pre-operative evaluation. [facility] Past Medical History Medical History Anxiety ADD (attention deficit disorder) Morbid obesity Eczema Hypothyroid Family History Family History Mother Renal cancer Father Diabetes mellitus Social History Social History Smoking status: Never smoker Substance use: current Lack of Transportation: No Lack of Food: Never True Current Housing: I Have Housing Concerned About Future Housing: No Difficulty Paying Gas/Electric Bills: No Difficulty Paying for Meds: No Currently Unemployed: No Education: Master's Degree or Higher Difficulty w/ Childcare or Family Care: No Spiritual care concerns: No Anes - Eval Final PreProcedure Day of Procedure 01/02/25 09:46 Patient weight: morbidly obese Heart: regular rate and rhythm Lungs: clear to auscultation Airway: Mallampati scale class II Neurological: alert and oriented Last oral intake: >/= 8 hours ASA classification: III Emergent: no Anesthetic plan: proceed Anesthesia type and monitoring: regional spinal and standard monitoring Results Review: All pre-operative results and documents have been reviewed as part of the pre-operative evaluation. Informed Consent: The patient's anesthetic plan and its attendant risks and benefits were discussed with the patient/family/POA. Questions were solicited and answers provided to the satisfaction of the patient/family/POA.
[2025-01-02] MEDS: SCOPOLAMINE 1 MG PATCH 1 PATCH TRANSDERM (10:06)
[2025-01-02] MEDS: FAMOTIDINE 20 MG/2 ML VIAL IV PUSH (10:44)
[2025-01-02] MEDS: ONDANSETRON INJ 4 MG/2 ML VIAL IV PUSH ×2 (10:45→14:22)
--- NOTE | 2025-01-02 10:46 | PM.IMHP ---
H&P: HPI History of Present Illness Date/Time: 01/02/25 10:46 Chief Complaint: gestational hypertension, repeat c section Narrative: Patient is a 34 year old female who presents for repeat c section. Her has been complicated by gestational hypertension, diagnosed at 36 weeks. She is asymptomatic. She denies strong contractions, leakage of fluid or vaginal bleeding. Good movement. Review of Systems Review of Systems: All systems reviewed & are unremarkable except as noted in HPI and below PMFSH Past Medical History Medical History Anxiety ADD (attention deficit disorder) Morbid obesity Eczema Hypothyroid Family History Family History Mother Renal cancer Father Diabetes mellitus Social History Social History Smoking status: Former smoker Substance use: current Lack of Transportation: No Lack of Food: Never True Current Housing: I Have Housing Concerned About Future Housing: No Difficulty Paying Gas/Electric Bills: No Difficulty Paying for Meds: No Currently Unemployed: No Education: Master's Degree or Higher Difficulty w/ Childcare or Family Care: No Spiritual care concerns: No Meds Home Medications and Allergies Home Medications ?Medication ?Instructions ?Recorded ?Confirmed ?Type sertraline 100 mg tablet 100 mg PO DAILY 09/09/23 01/02/25 History ferrous sulfate 325 mg (65 mg 65 mg PO DAILY 11/22/24 01/02/25 History iron) tablet (iron) vit no.95-ferrous 1 tablet PO DAILY 11/22/24 01/02/25 History fumarate 28 mg-folic acid 800 mcg tablet () Allergies Allergy/AdvReac Type Severity Reaction Status Date / Time No Known Allergies Allergy Unknown Verified 12/24/24 13:45 Vital Signs Vital Signs - 24 hr 01/02/25 09:27 01/02/25 09:31 01/02/25 09:39 Pulse Rate 67 68 Blood Pressure 138/89 151/88 H Oxygen Delivery Room Air 01/02/25 09:46 01/02/25 10:01 Pulse Rate 64 66 Blood Pressure 148/85 H 146/85 H Oxygen Delivery Exam Const: General: comfortable and no acute distress Eyes: General: appearance normal, both eyes and all related structures Resp: Effort & Inspection: normal respiratory effort Cardio: Rate: regular rate Skin: General skin exam: normal color Extrem: General: normal to inspection Psych: Mental Status: mental status grossly normal Assessment and Plan Assessment and plan (1) Hx of section complicating : Code(s): O34.219 - Maternal care for unspecified type scar from previous delivery Status: Acute Assessment and Plan: - risks and benefits of RCS vs TOLAC discussed with patient who desires repeat c section (2) Gestational hypertension: Code(s): O13.9 - Gestational [-induced] hypertension without significant proteinuria, unspecified trimester Status: Acute Assessment and Plan: - asymptomatic - BP mild range
--- NOTE | 2025-01-02 10:49 | WPDHPUPDATE1 ---
History and Physical Update Update Date/Time: 01/02/25 10:49 History and Physical has been reviewed, including an updated exam of the patient. There are NO changes in the patient's condition. Risks, benefits, and alternatives have been discussed and questions answered. Patient agrees to proceed with procedure.
[2025-01-02] MEDS: ceFAZolin 2 GM in SODIUM CHLORIDE 0.9% IV 50 ML 100 ML IVPB (10:56)
--- NOTE | 2025-01-02 11:25 | S_PTH ---
PATIENT: Emelina Frank LOC: [facility] U#:[id number] AGE/SX: 35/F ROOM: 282 RE01/02/[address]: Ernie Jones MD : 1990 BED: 00 DIS: 01/05/2025 SPEC #: [id number] RECD: 01/03/25 07:22 STATUS: JAMES REIsidoro #: [id number] RAJANI: 01/02/25 11:[address]: Weston Whitehead DEPT: [facility] Surgical RECD BY: Shaun Grant ENTERED: 01/03/25 07:22 SP TYPE: Surgical OTHR DR: SCHOOL PSYCHOLOGY PROFESSOR PHYSICIAN Tissues: A - Fallopian Tube Bilateral Procedures: Gross and Microscopic Level 2 Hematoxylin and Eosin Stain
--- NOTE | 2025-01-02 13:00 | P.PCNOB_ITS ---
OB - Delivery Note Procedure Delivery date: 01/02/25 Pre-op diagnosis: Gestational Hypertension and Previous Delivery Post-op Diagnosis: Same Induction method: None Delivery monitor: External FHT Prior to decision for section, ACOG/SMFM labor guidelines were considered and discussed with the patient and staff. Decision made to proceed with the section.: Yes Procedure Performed: Repeat Secondary branch: low cervical, transverse Surgeon: Weston Whitehead MD Anesthesia type: Spinal Description of Procedure/Findings: The patient was taken to the operating room where she was placed in the dorsal supine position with a leftward tilt. The electronic monitor was placed and heart rate was found to be reassuring. She was prepped and draped in the normal sterile fashion, and anesthesia was checked to be adequate. A Pfannenstiel skin incision was made with the scalpel and carried through to the underlying layer of fascia with the scalpel. The fascia was incised in the midline and the incision extended laterally with the Morillo scissors. The superior aspect of the fascial incision was then grasped with Babs clamps, elevated, and the underlying rectus muscles dissected off bluntly and with Morillo scissors. Attention was then turned to the inferior aspect of the fascial incision, which in similar fashion was grasped, elevated, and the rectus muscles dissected off.? The rectus muscles were then in the midline, and the peritoneum entered using two Peans and Metzenbaum scissors. The peritoneal incision was extended superiorly and inferiorly with good visualization of the bladder. With the bladder blade providing retraction and visualization, the lower uterine segment was incised in a transverse fashion with the scalpel. The uterine incision was then extended laterally. The bladder blade was removed and the infant's head was elevated and delivered atraumatically. The remainder of the infant was then delivered without difficulty, and the 's nose and mouth were suctioned with the bulb suction. The umbilical cord was doubly clamped and cut. The infant was then handed off to the waiting nursing staff. Specimens then obtained as listed below. The placenta was then removed manually and the uterus was exteriorized and cleared of all clots and debris. The uterine incision was repaired with 0- Monocryl in a running, interlocked fashion. A bilateral salpingectomy was performed by grasping the right fallopian tube with a Woodland and transecting the mesosalpinx using the Ligasure device. The tube was removed to the cornua of the uterus. The same procedure was performed on the left side. The posterior cul-de-sac was manually cleared of all clots and debris. The uterus was returned to the abdomen. The gutters were then manually cleared of all clots and debris.? The uterine incision was visualized to be hemostatic. The fascia was reapproximated with 0-Vicryl in a running fashion. The subcutaneous tissues were irrigated with warmed normal saline, and hemostasis was assured. The skin was closed with 4-0 monocryl in a running subcuticular stitch. Fundal pressure was applied to express remaining intrauterine clots and debris. The patient tolerated the procedure well. Sponge, lap, and needle counts were correct times three per nursing. The patient was taken to the recovery room in stable condition. Estimated Blood Loss: 450 Pathology: Yes Complications: No immediate complications Condition: Stable Disposition: Floor [place] Baby Date of : 01/02/25 Time of : 11:13 Gestational Age by Date: 37 gender: Male Weight (pounds): 7 Weight (ounces): 13 presentation: vertex position: Left Occiput Posterior Placenta delivery description: Expressed Cord Vessel Description: 3 Vessels, Nuchal Cord, Reduced and Delayed Cord Clamping
[2025-01-02] MEDS: LIDOCAINE 5% PATCH 1 PATCH TRANSDERM (13:30)
--- NOTE | 2025-01-02 14:30 | PC.NURSE ---
Patient transferred to post room #282 via stretcher. Support person present. Oriented to unit, room, information board, rooming in, admission packet and security measures. Patient verbalizes understanding.
[2025-01-02] MEDS: KETOROLAC 15 MG/ML VIAL (*BKC) IV PUSH ×2 (17:02→22:36)
[2025-01-02] MEDS: SIMETHICONE 80 MG TAB.CHEW PO (17:04)
--- NOTE | 2025-01-02 17:13 | PC.NURSE ---
Patient transferred to post room #284 via wheelchair. Support person present. Oriented to unit, room, information board, rooming in, admission packet and security measures. Patient verbalizes understanding.
[2025-01-02] MEDS: DEXTROSE 5%/0.45% SOD CHL 1,000 ML 125 ML IV CONT (18:41)
[2025-01-03 01:10] VITALS: BP 106/57; PULSE 88; RESP 14; TEMP 37.1; O2SAT 99
[2025-01-03 04:00] VITALS: BP 108/70; PULSE 83; RESP 14; TEMP 36.9; O2SAT 98
[2025-01-03] MEDS: oxyCODONE HCL (*CRX) 5 MG TAB IR PO ×4 (04:01→23:10)
[2025-01-03 07:15] VITALS: BP 120/61; PULSE 66; RESP 16; TEMP 37.1; O2SAT 97
[2025-01-03 07:30] LABS: Hematocrit 29.8 % (37.0-47.0); Hemoglobin 9.7 g/dL (12.0-15.0); Immature Granulocyte Percent A 0.5 % (0-0.5); Lymphocytes Absolute Auto 1.71 K/mm3 (0.9-3.2); Mean Corpuscular HGB Conc 32.6 g/dl (32-36); Mean Corpuscular Hemoglobin 29.8 pg (26-34); Mean Corpuscular Volume 91.4 fl (80-100); Nucleated Red Blood Cells Absolute Auto 0.000 K/mm3 (0.0-0.012); Nucleated Red Blood Cells Perc 0.0 % (0.0-0.2); Platelet Count Result 167 k/mm3 (150-375); Red Blood Count 3.26 M/mm3 (4.2-5.4); White Blood Count 11.3 K/mm3 (4.5-10.0)
[2025-01-03] MEDS: DOCUSATE SODIUM 100 MG CAPSULE PO ×2 (09:43→17:06)
[2025-01-03] MEDS: MULTIVIT/MIN/PREN/FOL AC/IRON TABLET 1 TAB PO (09:43)
[2025-01-03] MEDS: FERROUS SULFATE 325 MG TABLET BY MOUTH ×2 (09:43→17:06)
[2025-01-03] MEDS: SIMETHICONE 80 MG TAB.CHEW PO ×3 (09:43→17:07)
--- NOTE | 2025-01-03 09:45 | P.PNOB_ITS ---
OB - PN: Subj Subjective Date/time seen: 01/03/25 09:45 Interval history: PPD#1 s/p RLTCS and bilateral salpingectomy Pain controlled with medications Voiding without issue Tolerating general diet Baby level 2 nursery for blood sugars Bottle feeding OB - PN: Obj Data Labs 01/03/25 07:21 Labs: Laboratory Results - last 24 hr 01/03/25 07:21 WBC 11.3 H RBC 3.26 L Hgb 9.7 L Hct 29.8 L MCV 91.4 MCH 29.8 MCHC 32.6 RDW 13.9 Plt Count 167 MPV 12.0 H Immature Gran % (Auto) 0.5 Neut % (Auto) 78.4 H Lymph % (Auto) 15.1 L [place] % (Auto) 5.6 Eos % (Auto) 0.1 Baso % (Auto) 0.3 Lymph # (Auto) 1.71 [place] # (Auto) 0.6 Eos # (Auto) 0.0 Baso # (Auto) 0.0 Abs Immat Gran (auto) 0.06 H Absolute Neuts (auto) 8.9 H Absolute Nucleated RBC 0.000 Nucleated RBC % 0.0 OB - PN A/P Assessment and Plan (1) Gestational hypertension: Code(s): O13.9 - Gestational [-induced] hypertension without significant proteinuria, unspecified trimester Status: Acute Assessment and Plan: - asymptomatic - BP normal (2) S/P : Code(s): Z98.891 - History of uterine scar from previous surgery Status: Acute (3) Status post bilateral salpingectomy: Code(s): Z90.79 - Acquired absence of other genital organ(s) Status: Acute Plan day: 1 Plan: routine care Time Spent With Patient Time: Total time spent is greater than 50% in coordination of care (as documented) at patient's floor/unit and/or counseling patient: Review of Systems 2 Review of Systems: All systems reviewed & are unremarkable except as noted in HPI and below Exam 2 Const: General: comfortable and no acute distress O rientation/consciousness: patient oriented x3 Resp: Effort & Inspection: normal respiratory effort
[2025-01-03] MEDS: KETOROLAC 15 MG/ML VIAL (*BKC) IV PUSH (11:01)
[2025-01-03] MEDS: ACETAMINOPHEN 500 MG TABLET 1000 MG PO ×3 (11:02→23:10)
--- NOTE | 2025-01-03 14:04 | WPDANLDPN2 ---
Anes-Prog Note L&D Date/Time: 01/03/25 14:04 Comfortable throughout: section Neuraxial method: spinal Epidural/Spinal procedure site: clean & non-tender Neuro status: Neuro function grossly intact. Cardiovascular status: normal Respiratory status: normal Airway patency: baseline Mental status: baseline Post-Op hydration status: normal Vital Signs: Last Vital Signs Temp 37.1 C 01/03/25 07:15 Pulse 66 01/03/25 07:15 Resp 16 01/03/25 07:15 BP 120/61 01/03/25 07:15 Pulse Ox 97 01/03/25 07:15 O2 Del Method Room Air 01/02/25 13:55 Pain score (VAS): 04/22 I/O: Intake & Output 01/02/25 01/03/25 01/03/25 23:59 07:59 15:59 Intake Total 440 900 Output Total 1000 Balance 440 -100 Post-procedural complaints: none Patient feedback: Patient satisfied with anesthetic care.
--- NOTE | 2025-01-03 14:04 | WPDANLDNPN2 ---
Anes-Prog Note L&D-Neuraxial Date/Time: 01/03/25 14:04 Neuraxial medications: intrathecal PF morphine Opiod-related complaints: none Patient feedback: Patient satisfied with post-operative pain management.
[2025-01-03] MEDS: IBUPROFEN 600 MG TABLET PO ×2 (17:07→23:10)
[2025-01-03 20:00] VITALS: BP 147/77; PULSE 56; RESP 16; TEMP 36.7; O2SAT 99
[2025-01-03] MEDS: CALCIUM CARBONATE (TUMS) 500 MG (200 MG ELEMENTAL) 400 MG (23:10)
--- NOTE | 2025-01-03 23:14 | PC.NURSE ---
Discussed with patient her plan for pain management. Patient states that she would like to take her PRN Oxycodone with her scheduled Tylenol and Motrin. Educated patient that Oxycodone should be used for break through pain and taking it between scheduled doses may be more effective. Patient states understanding but would like to take it with her scheduled medication at this time so she is able to rest tonight.
[2025-01-04] MEDS: FAMOTIDINE 10 MG TABLET PO ×2 (01:40→10:02)
[2025-01-04 05:00] VITALS: BP 139/72; PULSE 71
[2025-01-04] MEDS: ACETAMINOPHEN 500 MG TABLET 1000 MG PO ×3 (05:12→19:50)
[2025-01-04] MEDS: IBUPROFEN 600 MG TABLET PO ×3 (05:12→19:50)
--- NOTE | 2025-01-04 07:14 | P.PNOB_ITS ---
OB - PN: Subj Subjective Date/time seen: 01/04/25 07:14 Interval history: PPD#2 s/p RLTCS and bilateral salpingectomy Pain controlled with medications Voiding without issue Tolerating general diet Baby level 2 nursery for blood sugars Bottle feeding OB - PN: Obj Data Labs 01/03/25 07:21 Labs: Laboratory Results - last 24 hr 01/03/25 07:21 WBC 11.3 H RBC 3.26 L Hgb 9.7 L Hct 29.8 L MCV 91.4 MCH 29.8 MCHC 32.6 RDW 13.9 Plt Count 167 MPV 12.0 H Immature Gran % (Auto) 0.5 Neut % (Auto) 78.4 H Lymph % (Auto) 15.1 L [place] % (Auto) 5.6 Eos % (Auto) 0.1 Baso % (Auto) 0.3 Lymph # (Auto) 1.71 [place] # (Auto) 0.6 Eos # (Auto) 0.0 Baso # (Auto) 0.0 Abs Immat Gran (auto) 0.06 H Absolute Neuts (auto) 8.9 H Absolute Nucleated RBC 0.000 Nucleated RBC % 0.0 OB - PN A/P Plan day: 2 Plan: routine care Time Spent With Patient Time: Total time spent is greater than 50% in coordination of care (as documented) at patient's floor/unit and/or counseling patient: Review of Systems 2 Review of Systems: All systems reviewed & are unremarkable except as noted in HPI and below Exam 2 Const: General: cooperative and healthy appearing Chest: Chest palpation & inspection: normal inspection of the chest Resp: Effort & Inspection: normal respiratory effort Cardio: Rate: regular rate GI: Other: incision cdi
[2025-01-04 07:55] VITALS: BP 133/85; PULSE 67; RESP 16; TEMP 36.3; O2SAT 100
[2025-01-04] MEDS: FERROUS SULFATE 325 MG TABLET BY MOUTH (10:02)
[2025-01-04] MEDS: SIMETHICONE 80 MG TAB.CHEW PO ×3 (10:02→19:50)
[2025-01-04] MEDS: DOCUSATE SODIUM 100 MG CAPSULE PO ×2 (10:03→19:50)
[2025-01-04] MEDS: MULTIVIT/MIN/PREN/FOL AC/IRON TABLET 1 TAB PO (10:03)
[2025-01-04] MEDS: oxyCODONE HCL (*CRX) 5 MG TAB IR PO ×2 (10:03→22:00)
--- NOTE | 2025-01-04 11:14 | PC.NURSE ---
On 01/04/25, the student, Erlinda Torres, provided care and completed [employer] documentation on this patient. I have reviewed the student's documentation and agree with the findings.
[2025-01-04 12:16] VITALS: BP 118/69; PULSE 85; RESP 16; TEMP 37.4; O2SAT 99
[2025-01-04] MEDS: oxyCODONE HCL (*CRX) 5 MG TAB IR 10 MG PO (15:45)
[2025-01-04 19:50] VITALS: BP 148/83; PULSE 74; RESP 16; TEMP 36.3; O2SAT 100
[2025-01-05 00:14] VITALS: BP 146/82; PULSE 62
[2025-01-05] MEDS: FAMOTIDINE 10 MG TABLET PO (01:30)
[2025-01-05] MEDS: IBUPROFEN 600 MG TABLET PO ×3 (01:30→13:31)
[2025-01-05] MEDS: ACETAMINOPHEN 500 MG TABLET 1000 MG PO ×3 (01:30→13:31)
[2025-01-05] MEDS: CALCIUM CARBONATE (TUMS) 500 MG (200 MG ELEMENTAL) PO (01:30)
[2025-01-05 04:12] VITALS: BP 127/64; PULSE 69
[2025-01-05] MEDS: DOCUSATE SODIUM 100 MG CAPSULE PO (07:55)
[2025-01-05] MEDS: FERROUS SULFATE 325 MG TABLET BY MOUTH (07:55)
[2025-01-05] MEDS: MULTIVIT/MIN/PREN/FOL AC/IRON TABLET 1 TAB PO (07:55)
[2025-01-05] MEDS: oxyCODONE HCL (*CRX) 5 MG TAB IR PO ×2 (07:58→13:31)
[2025-01-05 08:10] VITALS: BP 146/85; PULSE 68; RESP 18; TEMP 37.1; O2SAT 99
--- NOTE | 2025-01-05 12:57 | P.PNOB_ITS ---
OB - PN: Subj Subjective Date/time seen: 01/05/25 12:57 Interval history: PPD#2 s/p RLTCS and bilateral salpingectomy Pain controlled with medications Voiding without issue Tolerating general diet Baby level 2 nursery for blood sugars Bottle feeding Patient comments: no complaints, pain well controlled, incisional pain, tolerating diet and flatus present OB - PN: Obj Data Labs 01/03/25 07:21 OB - PN A/P Plan day: 3 Plan: routine care, discharge home and other Comments: Incision check in one week. Given precautions Time Spent With Patient Time: Total time spent is greater than 50% in coordination of care (as documented) at patient's floor/unit and/or counseling patient: Exam 2 Const: General: comfortable, no acute distress and alert Resp: Effort & Inspection: normal respiratory effort Auscultation: no crackles, no rales and no rhonchi Cardio: Rate: regular rate Heart sounds: no click, no murmurs and no rubs GI: Inspection: non-distended GI Palp: No Tenderness to palpation present (GI) Auscultation: normal bowel sounds Other: Incision - CDI Extrem: General: normal to inspection, no pedal edema and no calf tenderness
--- NOTE | 2025-01-05 12:57 | PM.OBDSVD ---
DS: Admitting Diagnosis Discharge Date 01/05/2025 Admitting Diagnosis Term DS: Discharge Diagnosis Discharge Diagnosis (1) delivery delivered: Code(s): O82 - Encounter for delivery without indication Status: Acute OB - DS: Summary OB Procedures : None OB Procedures Intrapartum: OB Procedures: : None Peripartum Data Procedures: Procedures Operation Date: 01/02/25 10:30 Actual Procedure Side Surgeon p Section Weston Whitehead MD Time Spent with Patient Time attestation: Total time spent providing and/or coordinating discharge services: DS: Data Data Completed and Pending Completed studies during hospitalization: Pending at discharge 01/02/25 11:25 Surgical [PTH] Routine Discharge Plan Discharge Attending physician on discharge: Weston Whitehead Discharging Clinician: Huma Becker Patient Disposition: Home Activity: pelvic rest Diet: regular Discharge Instructions: FEEDING PLAN: You are exclusively pumping at discharge. It is important to pump regularly and consistently to help initiate your milk supply. Regular milk removal is necessary for continued milk production. You need to pump at least 8 times every 24 hours. You can use hands on pumping to get better results with pumping and to encourage your breasts to produce more milk. Hands on pumping instructions: 1.? Massage your breasts before applying the breast pump. 2.? Pump both breasts at once. Use your hands to massage and compress while you pump. 3.? Stop pumping when the milk stops flowing 4.? Massage your breasts again 5.? End the pumping session by pumping or hand expressing one breast at a time while massaging and compressing your breast. Go back and forth between each breast until the milk stops flowing. 6.? Allow 25 minutes to complete this routine ? It is important to be sure you have a well-fitted pump flange. Consult your pump manual for recommended flange sizing or consult a professional. YOU SHOULD SET YOUR PUMP TO THE HIGHEST COMFORTABLE LEVEL. INCREASE THE SUCTION GRADUALLY UNTIL YOU REACH THE CORRECT SETTING. PUMPING SHOULD NOT HURT. CONSULT YOUR PUMP MANUAL FOR GUIDANCE ON PUMP SETTINGS AND FUNCTIONS. MOST PUMPS RECOMMEND 1-2 MINUTES OF THE QUICK ?MASSAGE? MODE, THEN SWITCHING TO THE SLOWER ?EXPRESSION? MODE FOR THE REMAINDER OF THE PUMPING SESSION. Pump each breast for 10-15 minutes. Pumping will help stimulate your breasts to produce milk. ?Follow the collection and storage sheet given to you in the Mom and Baby Guide. Remember to keep track of all feedings/elimination on the blue worksheet provided. Clean your pump parts between each pumping session according to the guidelines in your pump manual. It is recommended that you use a basin that is reserved for washing pump parts that is separate from your sink to prevent contamination. If you are pumping for an ill or , you should disinfect your pump parts once a day by boiling them in hot water for 5 minutes after cleaning. Ways to increase your milk supply: ? Increase frequency of pumping (10-12 times every 24 hours) ? Lots of skin to skin (if is able), especially before pumping ? Use warm washcloths before pumping and gentle breast massage before and during pumping ? Reduce stress, relax with music, get plenty of rest, and drink to thirst ? Warm pump flanges with warm water before pumping ? Pump until the milk stops flowing, then pump for 2 more minutes to fully empty the breast ? Pump at least once through the night, milk shouldn't remain in the breast for longer than 4 hours ? Power pumping: Pump for 15-20 minutes, rest for 10 minutes, pump for 10, rest for 10, pump for 10. Do this routine 1-2 times a day for several days or until you notice an increase in milk supply. Pump normally between power pumping sessions. You may contact the Team at [phone] for questions and appointments. Patient Language: Arabic Stand Alone Forms: General Discharge Information Follow-up/Referrals: Weston Whitehead MD [Physician, GROUND SURVEILLANCE SYSTEMS OPERATOR] Huma Becker CNM [Certified Nurse Pipe Manufacture Supervisor, GROUND SURVEILLANCE SYSTEMS OPERATOR] - 1 Week Referral Note: [place] 1 week [place] 4 weeks Discharge Medications: New oxycodone 5 mg Tablet 5 mg PO Q4H PRN (Reason: Pain Rated 4-6) 14 Days Qty: 25 0RF Continued sertraline 100 mg tablet 100 mg PO DAILY PNV no.95-ferrous fumarate-FA [] 28 mg iron- 800 mcg tablet 1 tablet PO DAILY ferrous sulfate [iron] 325 mg (65 mg iron) tablet 65 mg PO DAILY Date of admission: 01/02/25 08:24 Primary Care Provider: PHYSICIAN,OPHTHALMOLOGY ASSISTANT Admitting Provider: Weston Whitehead Attending physician on admission: Weston Whitehead Condition: Stable
--- NOTE | 2025-01-05 14:05 | PC.NURSE ---
Patient discharged to a no care bed and moved to room 114 to be with baby, who is in the level 2 nursery.
[2025-01-07 09:45] VITALS: BP 156/69; PULSE 67; RESP 20; TEMP 37.5; O2SAT 99
== END 2025-01-05 14:05 | disposition home or self-care (01) | DRG 785 ==
LOC: ANHOB2 01-04 07:17 → ANHLDR 01-06 09:21
PROVIDERS: Admitting Provider Obstetrics & Gynecology; Visit Provider Obstetrics & Gynecology
PROC: 10D00Z1 Extraction of Products of Conception, Low, Open Approach (ICD-10-PCS; CPT 59514; principal; 2025-01-02 10:30)
DX: O13.4 Gestational [pregnancy-induced] hypertension without significant proteinuria, complicating childbirth (principal); Z37.0 Single live birth; E66.01 Morbid (severe) obesity due to excess calories; O99.214 Obesity complicating childbirth; Z3A.37 37 weeks gestation of pregnancy; O34.211 Maternal care for low transverse scar from previous cesarean delivery; O69.81X0 Labor and delivery complicated by cord around neck, without compression, not applicable or unspecified; Z30.2 Encounter for sterilization
CPT/HCPCS: 36415; 85025; 88302; J0690; A9270; J1100; J1885; J2274; J2405; J2590; J7120

== ENCOUNTER 2025-01-14 14:19 | Outpatient (CLI) | payer BC, OTHER, SELFPAY ==
[2025-01-14] VITALS (19 sets, daily range): BP systolic 140–146; BP diastolic 74–79; PULSE 75–91; TEMP 36.6; O2SAT 97–99; BMI 43.1
[2025-01-14 14:37] LABS: Hematocrit 35.9 % (37.0-47.0); Hemoglobin 11.7 g/dL (12.0-15.0); Immature Granulocyte Percent A 0.2 % (0-0.5); Lymphocytes Absolute Auto 1.85 K/mm3 (0.9-3.2); Mean Corpuscular HGB Conc 32.6 g/dl (32-36); Mean Corpuscular Hemoglobin 29.5 pg (26-34); Mean Corpuscular Volume 90.7 fl (80-100); Nucleated Red Blood Cells Absolute Auto 0.000 K/mm3 (0.0-0.012); Nucleated Red Blood Cells Perc 0.0 % (0.0-0.2); Platelet Count Result 300 k/mm3 (150-375); Red Blood Count 3.96 M/mm3 (4.2-5.4); White Blood Count 8.3 K/mm3 (4.5-10.0)
[2025-01-14 14:50] LABS: Alanine Aminotransferase 17 U/L (6-35); Albumin Level 3.7 g/dL (3.5-5.1); Alkaline Phosphatase 56 U/L (38-126); Anion Gap 6 mmol/L (4-12); Aspartate Amino Transferase 21 U/L (14-36); Bilirubin,Total 0.3 mg/dL (0.2-1.3); Blood Urea Nitrogen 11 mg/dL (7-17); Calcium 8.8 mg/dL (8.4-10.2); Carbon Dioxide 28 mmol/L (22-30); Chloride 106 mmol/L (98-107); Estimated Glomerular Filt Rate > 60; Glucose 103 mg/dL (65-110); Potassium 3.5 mmol/L (3.4-5.0); Sodium 140 mmol/L (137-145); Total Protein 7.2 g/dL (6.3-8.2); Uric Acid 6.5 mg/dL (2.5-7.5)
--- NOTE | 2025-01-14 15:01 | PC.NURSE ---
1437-Patient arrived to OB unit with complaints of a headache and elevated blood pressures at home. Patient states her blood pressure was 153/92 at home. Patient is PP and had a repeat on 01/02/25. Patient states she had GHTN during . Patient states she has had elevated blood pressures since delivery and that she was started on medication for it yesterday. Patient states she took her first dose of the medication yesterday morning. Patient denies any increase in bleeding or pain near incision site. Patient states her headache started at 1230 and she took tylenol for it, but that it has not gone away. Patient denies any increased in swelling or RUQ pain. Patient states the headache worsens when she moves around, but that dimming the lights and rest does help.
[2025-01-14] MEDS: CAFFEINE 200 MG TABLET PO (15:07)
--- NOTE | 2025-01-14 16:11 | PC.NURSE ---
1540- RN assessed patient's headache. Patient states her headache is better, but is kind of just off and on now. 1543- RN notified Dr. Jones of patient update and gave orders to d/c patient.
== END 2025-01-14 15:55 | disposition home or self-care (01) ==
LOC: ANHOBOP 14:23 → ANHOBPP 14:24
PROVIDERS: Visit Provider Obstetrics & Gynecology
DX: O16.9 Unspecified maternal hypertension, unspecified trimester (principal); O13.9 Gestational [pregnancy-induced] hypertension without significant proteinuria, unspecified trimester; Z3A.00 Weeks of gestation of pregnancy not specified
CPT/HCPCS: 36415; 80053; 84550; 85025; A9270

== ENCOUNTER 2025-01-27 09:19 | Inpatient (IN) | payer BC, OTHER, SELFPAY ==
[2025-01-27] VITALS (19 sets, daily range): BP systolic 117–199; BP diastolic 67–114; PULSE 40–106; RESP 13–18; TEMP 36.3–36.8; O2SAT 96–100
--- NOTE | 2025-01-27 | ECHO_ITS ---
Patient Info Name: Emelina Frank Age: 35 years : 1990 Gender: Female Ht: 64 in Wt: 251 lbs BSA: 2.33 m2 HR: 67 bpm BP: 148 / 77 mmHg Heart Rhythm: Sinus Rhythm Technical Quality: Fair Exam Date: 01/27/2025 11:44 AM Patient Status: unknown Admit Date: 01/27/2025 Exam Type: CA echo doppler color flow Complete two-dimensional, color flow and Doppler transthoracic echocardiogram is performed. Staff Referring Physician: Mesha Dhaliwal Access Rep: Emilia Cordero Attending Provider: Weston Whitehead Summary 1. Complete two-dimensional, color flow and Doppler transthoracic echocardiogram is performed. 2. Normal LV size and wall thickness, normal LV systolic function, LVEF calculated at 71%. Diastolic dysfunction is present. Borderline biatrial enlargement. Trivial MR. Aortic valve not well visualized. Transaortic velocity is mildly elevated. Trivial TR, RVSP 30 mmHg. Left Ventricular Outflow Tract Name Value Normal LVOT 2D LVOT Diameter 2.0 cm LVOT Doppler LVOT Peak Velocity 147 cm/s LVOT Peak Gradient 9 mmHg LVOT Mean Gradient 4 mmHg LVOT VTI 32 cm LVOT VTI/AV VTI Ratio 0.8 LVOT Stroke Volume 101 ml LVOT CO 6.6 l/min LVOT CI 2.8 l/min/m2 Pulmonic Valve Name Value Normal RVOT Doppler RVOT Peak Velocity 80 cm/s RVOT Peak Gradient 3 mmHg PV Doppler PV Peak Velocity 114 cm/s PV Peak Gradient 5 mmHg Mitral Valve Name Value Normal MV Diastolic Function MV E Peak Velocity 119 cm/s MV A Peak Velocity 69 cm/s MV E/A 1.7 MV Decel Time (PW) 314 ms MV Annular TDI MV E/e' (Septal) 15.2 MV E/e' (Lateral) 12.2 MV E/e' (Average) 13.7 Tricuspid Valve Name Value Normal TV Regurgitation Doppler TR Peak Velocity 223 cm/s TR Peak Gradient 20 mmHg Estimated PAP/RSVP RA Pressure 10 mmHg <=5 PA Systolic Pressure 30 mmHg <36 RV Systolic Pressure 30 mmHg <36 TV Annular TDI TV Lateral Lizbeth s' Velocity 13.5 cm/s >=9.5 Aorta Name Value Normal Ascending Aorta Ao Root Diameter (MM) 2.5 cm Ao Root Diam Index (MM) 1.1 cm/m2 Aortic Valve Name Value Normal AV Doppler AV Peak Velocity 182 cm/s AV Peak Gradient 13 mmHg AV Mean Gradient 6 mmHg AV VTI 39 cm AV Area (Cont Eq VTI) 2.6 cm2 >=3.0 AV Area (Cont Eq Jethro) 2.6 cm2 AV DI (Jethro) 0.81 AV Regurgitation 2D LVOT Area 3.2 cm2 Ventricles Name Value Normal LV Dimensions 2D/MM IVS Diastolic Thickness (2D) 0.9 cm 0.6-1.0 LVID Diastole (2D) 4.5 cm 3.8-5.2 LVIW Diastolic Thickness (2D) 0.9 cm 0.6-0.9 LVID Systole (2D) 2.8 cm 2.2-3.5 LVOT Diameter 2.0 cm LV Mass (2D Cubed) 132.53 g 67.00-162.00 LV Mass Index (2D Cubed) 57 g/m2 43-95 Relative Wall Thickness (2D) 0.39 <=0.42 LV Fractional Shortening/Ejection Fraction 2D/MM LV Fractional Shortening (2D) 39 % 27-45 LV EF (2D Teichholz) 70 % LV Diastolic Volume (4C MOD) 83 ml LV EF (4C MOD) 73 % LV Diastolic Volume (2C MOD) 72 ml LV EF (2C MOD) 71 % LV Diastolic Volume (BP MOD) 77 ml 46-106 LV Diastolic Volume Index (BP MOD) 33 ml/m2 29-61 LV Systolic Volume (BP MOD) 22 ml 14-42 LV Systolic Volume Index (BP MOD) 9 ml/m2 8-24 LV EF (BP MOD) 71 % 54-74 LV Diastolic Length (4C) 7.4 cm LV Systolic Length (4C) 5.6 cm LV Stroke Volume (4C MOD) 61 ml Atria Name Value Normal LA Dimensions LA Dimension (MM) 5.0 cm 2.7-3.8 LA Volume (4C A-L) 55 ml LA Volume (BP A-L) 55 ml RA Dimensions RA Area (4C) 16.2 cm2 <=18.0 Report Signatures
--- NOTE | ~2025-01-27 | XR_ITS ---
EXAMINATION: XR chest 1V portable COMPARISON: No comparisons available. HISTORY: cough FINDINGS: The lungs are clear, no effusion. No pneumothorax. Heart is normal size. Mediastinal and hilar contours are within normal limits. Bony thorax no acute abnormality. Miscellaneous: None Impression: No acute cardiopulmonary abnormality. Reviewed, dictated and finalized at location P. Impression: No acute cardiopulmonary abnormality.
[2025-01-27 10:24] LABS: Hematocrit 33.5 % (37.0-47.0); Hemoglobin 10.8 g/dL (12.0-15.0); Immature Granulocyte Percent A 0.9 % (0-0.5); Lymphocytes Absolute Auto 1.83 K/mm3 (0.9-3.2); Mean Corpuscular HGB Conc 32.2 g/dl (32-36); Mean Corpuscular Hemoglobin 28.6 pg (26-34); Mean Corpuscular Volume 88.9 fl (80-100); Nucleated Red Blood Cells Absolute Auto 0.000 K/mm3 (0.0-0.012); Nucleated Red Blood Cells Perc 0.0 % (0.0-0.2); Platelet Count Result 291 k/mm3 (150-375); Red Blood Count 3.77 M/mm3 (4.2-5.4); White Blood Count 6.7 K/mm3 (4.5-10.0)
[2025-01-27 10:44] LABS: Alanine Aminotransferase 21 U/L (6-35); Albumin Level 3.6 g/dL (3.5-5.1); Alkaline Phosphatase 60 U/L (38-126); Anion Gap 6 mmol/L (4-12); Aspartate Amino Transferase 21 U/L (14-36); Bilirubin,Total 0.3 mg/dL (0.2-1.3); Blood Urea Nitrogen 10 mg/dL (7-17); Calcium 8.5 mg/dL (8.4-10.2); Carbon Dioxide 26 mmol/L (22-30); Chloride 107 mmol/L (98-107); Estimated CRCL calculation 93 ml/min; Estimated Glomerular Filt Rate > 60; Glucose 82 mg/dL (65-110); Magnesium 2.0 mg/dL (1.6-2.3); Potassium 3.7 mmol/L (3.4-5.0); Sodium 139 mmol/L (137-145); Total Protein 7.0 g/dL (6.3-8.2); Uric Acid 7.2 mg/dL (2.5-7.5)
[2025-01-27 10:46] LABS: Add Urine Microscopic? YES; Appearance Urine Clear (Clear); Glucose Urine UA Negative (Negative); Leukocyte Esterase Ur Trace LEU/UL (Negative); Nitrate Urine Negative (Negative); Non Pathogenic Casts 0-2; Specific Grav Ur 1.013 (1.001-1.035)
[2025-01-27 10:51] LABS: NT Pro B Type Natriuretic Pept 502 pg/mL (19.9-100)
[2025-01-27 11:01] LABS: INR 1.0; Prothrombin Time 13.6 Seconds (11.1-14.7)
--- NOTE | 2025-01-27 11:01 | ED_ITS ---
HPI - General Adult General Chief complaint: Recheck/Abnormal Lab/Rx Stated complaint: high bp, 3 weeks post Time Seen by Provider: 01/27/25 09:54 History of Present Illness HPI narrative: Emelina Frank is a 35-year-old female who is 3 weeks 2 para 2 who presents today with complaints of elevated blood pressure. She states that she had not checked her blood pressure in a couple days she was feeling well and then yesterday she started not feel so good having a headache she checked her blood pressure at home and it was 183/102. She is currently on 300 mg of labetalol b.i.d.. She took her last 300 mg of labetalol at around 7:30 a.m. this morning and blood pressure continued to be elevated in the 180 systolic so she came into the emergency department. Here she is only complaining of a headache denies abdominal pain denies shortness of breath denies chest pain she says she has a little bit of indigestion feeling in her upper abdominal area no right upper quadrant pain. She denies shortness of breath, denies cough, denies fever, denies visual disturbances. Blood pressure here is 193/100. Related Data Home Medications ?Medication ?Instructions ?Recorded ?Confirmed ?Last Taken ?Type sertraline 100 mg tablet 100 mg PO DAILY 09/09/23 Unknown History ferrous sulfate 325 mg (65 mg 65 mg PO DAILY 11/22/24 01/02/25 12/31/24 08:00 History iron) tablet (iron) vit no.95-ferrous 1 tablet PO DAILY 11/22/24 01/02/25 12/31/24 08:00 History fumarate 28 mg-folic acid 800 mcg tablet () Allergies Allergy/AdvReac Type Severity Reaction Status Date / Time No Known Allergies Allergy Unknown Verified 01/27/25 17:57 Review of Systems 2 Review of Systems: All systems reviewed & are unremarkable except as noted in HPI and below PMFSH Past Medical History Medical History Anxiety ADD (attention deficit disorder) Morbid obesity Eczema Hypothyroid Family History Family History Mother Renal cancer Father Diabetes mellitus Social History Social History Smoking status: Former smoker Substance use: current Lack of Transportation: No Lack of Food: Never True Current Housing: I Have Housing Concerned About Future Housing: No Difficulty Paying Gas/Electric Bills: No Difficulty Paying for Meds: No Currently Unemployed: No Education: Master's Degree or Higher Difficulty w/ Childcare or Family Care: No Spiritual care concerns: No Exam 2 Narrative: GENERAL: Well-appearing, well-nourished, and in no acute distress. HEAD: Normocephalic, atraumatic. EYES: PERRLA and EOMI. ENT: Nares clear, no rhinorrhea or epistaxis. Mucous membranes moist. Oropharynx without tonsillar hypertrophy exudate or other lesions. NECK: Supple. No adenopathy or masses. No carotid bruits or JVD CHEST: Clear to auscultation. No respiratory distress. No wheezes rales or rhonchi HEART: Regular rate and rhythm. No murmur heard. Normal peripheral pulses. ABDOMEN: Soft, nontender, nondistended, normal active bowel sounds. EXTREMITIES: Normal range of motion. No edema. SKIN: Warm, dry, no rash. NEURO: No focal deficits. Alert and oriented x3. PSYCH: Normal mood and affect. Course Vital Signs Vital signs: Vital Signs Temperature 36.8 C 01/27/25 09:20 Pulse Rate 47 L 01/27/25 09:20 Respiratory Rate 16 01/27/25 09:20 Blood Pressure 174/101 H 01/27/25 09:20 Pulse Oximetry 99 01/27/25 09:20 Temperature 36.3 C L 01/27/25 16:45 Pulse Rate 71 01/27/25 16:45 Respiratory Rate 18 01/27/25 16:45 Blood Pressure 124/67 01/27/25 16:45 Pulse Oximetry 100 01/27/25 16:45 Medical Decision Making [facility] [place] Narrative Medical decision making narrative: 35 year old female who presents today with complaints of having elevated blood pressure she is 3 weeks . She is also complaining of headache blood pressure here is 183/100 with heart rate 42 to took her labetalol at 7:30 a.m. this morning. Exam is otherwise unremarkable concern for eclampsia, HELLP syndrome, cardiomyopathy Blood pressure here in the emergency department is 180-190 systolic over 100s started workup for eclampsia and HELLP syndrome Based on elevated blood pressure in the low heart rate will administer 5 mg of hydralazine now pending lab results. Patient states she does have a slight headache but denies any other symptoms she denying having any visual disturbances denies right upper quadrant pain denies abdominal pain denies chest pain nausea denies vomiting she states that she did have a little bit of indigestion discomfort persisted is no chest pain. Denies cough denies shortness of breath CBC what is showing normal platelet level with no leukocytosis hemoglobin 10.8 hematocrit 33.5 CMP is completely unremarkable with normal liver enzyme test Lactate dehydrogenase is 200 Pro BNP-5 O2 UA-but is set if red blood, trace leukocytes rbc's 6-10 Magnesium 2.0 Uric acid 7.2 Lactic acid 0.9 I did reach out to her OBGYN doctor [place] who accepts for admission and recommends starting a magnesium bolus of 4 g with a continuous 2 g an hour magnesium and after the 5 mg of hydralazine with not much improvement of her blood pressure patient was given 10 mg of IV hydralazine. Dr. Whitehead also recommends ordering an echocardiogram Magnesium was initiated the echocardiogram was ordered patient did get a bed over in labor and delivery where she can be on telemetry while being in the emergency department after that 2nd dose of hydralazine her blood pressure did start to improve along with her heart rate. Medical Records Medical records reviewed: Yes I reviewed the external patient's medical records. Vital Signs Vital Signs: Vital Signs Temperature 36.8 C 01/27/25 09:20 Pulse Rate 47 L 01/27/25 09:20 Respiratory Rate 16 01/27/25 09:20 Blood Pressure 174/101 H 01/27/25 09:20 Pulse Oximetry 99 01/27/25 09:20 Temperature 36.3 C L 01/27/25 16:45 Pulse Rate 71 01/27/25 16:45 Respiratory Rate 18 01/27/25 16:45 Blood Pressure 124/67 01/27/25 16:45 Pulse Oximetry 100 01/27/25 16:45 vitals reviewed Lab Data Lab results reviewed: Yes I reviewed the patient's lab results. 01/27/25 10:13 01/27/25 10:13 Labs: Lab Results 01/27/25 01/27/25 01/27/25 Range/Units 10:13 10:13 10:17 WBC 6.7 (4.5-10.0) K/mm3 RBC 3.77 L (4.2-5.4) M/mm3 Hgb 10.8 L (12.0-15.0) g/dL Hct 33.5 L (37.0-47.0) % MCV 88.9 (80-100) fl MCH 28.6 (26-34) pg MCHC 32.2 (32-36) g/dl RDW 12.8 (11.5-14.5) % Plt Count 291 (150-375) k/mm3 MPV 10.6 H (7.4-10.4) fl Immature Gran % (Auto) 0.9 H (0-0.5) % Neut % (Auto) 59.3 (45.5-73.1) % Lymph % (Auto) 27.4 (18.3-44.2) % [place] % (Auto) 5.7 (2.6-8.5) % Eos % (Auto) 6.1 H (0-4.4) % Baso % (Auto) 0.6 (0.2-1.2) % Lymph # (Auto) 1.83 (0.9-3.2) K/mm3 [place] # (Auto) 0.4 (0.1-0.6) K/mm3 Eos # (Auto) 0.4 H (0-0.3) K/mm3 Baso # (Auto) 0.0 (0.0-0.1) K/mm3 Abs Immat Gran (auto) 0.06 H (0.00-0.031) K/mm3 Absolute Neuts (auto) 4.0 (1.3-6.7) K/mm3 Absolute Nucleated RBC 0.000 (0.0-0.012) K/mm3 Nucleated RBC % 0.0 (0.0-0.2) % PT 13.6 (11.1-14.7) Seconds INR 1.0 APTT 25.7 (22.3-36.8) Seconds Sodium 139 (137-145) mmol/L Potassium 3.7 (3.4-5.0) mmol/L Chloride 107 (98-107) mmol/L Carbon Dioxide 26 (22-30) mmol/L Anion Gap 6 (4-12) mmol/L BUN 10 (7-17) mg/dL Creatinine 0.93 (0.7-1.0) mg/dL Estim Creat Clear Calc 93 ml/min Estimated GFR > 60 (59 - ) Glucose 82 (65-110) mg/dL Lactic Acid 0.9 (0.7-2.0) mmol/L Uric Acid 7.2 (2.5-7.5) mg/dL Calcium 8.5 (8.4-10.2) mg/dL Magnesium 2.0 (1.6-2.3) mg/dL Total Bilirubin 0.3 (0.2-1.3) mg/dL AST 21 (14-36) U/L ALT 21 (6-35) U/L Alkaline Phosphatase 60 (38-126) U/L Lactate Dehydrogenase 200 (120-246) U/L NT-Pro-B Natriuret Pep 502 H Cancelled (19.9-100) pg/mL Total Protein 7.0 (6.3-8.2) g/dL Albumin 3.6 (3.5-5.1) g/dL Urine Color Yellow (Yellow) Urine Appearance Clear (Clear) Urine pH 6.0 (5.0-9.0) Ur Specific [place] 1.013 (1.001-1.035) Urine Protein Negative (Negative) mg/dL Urine Glucose (UA) Negative (Negative) mg/dL Urine Ketones Negative (Negative) mg/dL Ur Blood (Man) 1+ H (Negative) Urine Nitrate Negative (Negative) Urine Bilirubin Negative (Negative) Urine Urobilinogen 0.2 (<2.0) mg/dL Leukocyte Esterase Rfl Trace H (Negative) STEPHON/UL Urine RBC 6-10 H (0-2) /hpf Urine WBC 0-5 (0-3) /hpf Ur Squamous Epith Cells None seen (Few) /hpf Urine Bacteria None seen /hpf Urine Casts 0-2 Imaging Data Radiologist's impression: Impressions Chest X-Ray 01/27/25 10:54 Impression: No acute cardiopulmonary abnormality. Discharge Plan Discharge Clinical Impression: hypertension Headache Qualifiers: Headache type: unspecified Headache chronicity pattern: acute headache I ntractability: intractable Qualified Code(s): R51.9 - Headache, unspecified Patient Disposition: Still a Patient Condition: Stable
[2025-01-27 11:02] LABS: Partial Thromboplastin Time 25.7 Seconds (22.3-36.8)
--- OUTSIDE RECORDS SUMMARY | 2025-01-27 11:12 | XMS_ITS | Data Portability ---
Author Organization [facility] Address [address] [place] [address] Assessment Encounter Date Assessment Date Assessment LastModified by Organization Details LastModified Time 12/21/2024 12/21/2024 Patient is36 ___weeks . Discussed plan. Not available 12/21/2024 17:24:09 Plan of Treatment Reminders Order Date Submit Date Provider Last Modified By Organization Details Last Modified Time Details Appointments POST 2024 03:15P Arianna BARDALES MD Not available Not available Not available Lab streptoco ccus group B, culture, unspecifi ed specimen 2024 025 [facility] (Lab), [address], [place], [address], 01/01/2025 16:07:17 Referral None recorded. Procedures None recorded. Surgeries None recorded. Imaging None recorded. Medication Orders None recorded. Patient TargetsNo targets recorded. Patient InstructionsNo instructions recorded. Reason for Referral None Reported. Results Created Date Observation Date Name Description Value Unit Range Abnormal Flag Note LastModifiedBy Organization Detail LastModifiedTime 12/28/1912/27/2024 CULTU RE: GROUP B STREP SCREE N, REFLE X SUSCE PTIBI LITY result report SEE RESULT S BELOW abnormal Test: Cultu re: Group B Strep , Refle x Susce ptibi lity ([facility]/ [facility] ) Speci men Sourc e: Vagin a/Rec kera Speci men Type: Vagin al/Re ctal Speci men Date: 2024 1640 Resul t Date: 2024 1503 Resul t Statu s: Final resul t Abnor mal: Yes Resul carineg Lab: [facility] [address] [facility] [address] Tel: CULTU RE ----- ----- ----- --- Posit iraida for Strep tococ cus agala ctiae (Grou p B) (Abno rmal) Clind amyci n susce ptibl e, eryth romyc in resis tant. The clind amyci n induc tion test (D-t est) is negat iraida, there fore clind amyci n shoul d be clini mary effec tive again st this isola te. Not Available [facility] (Lab) [address], [place], [address], 01/01/2025 16:07:17 12/06/19 25 12/05/2024 US, obste tric, follo w-up No observ ation record ed. [email or web address], [place], [address], 12/05/2024 18:26:39 12/06/19 25 12/05/2024 US, obste tric, follo w-up No observ ation record ed. KIM Shultz [address], [facility], [place], [address], 12/06/2024 17:56:43 12/26/1912/24/2024 non-s tress test No observ ation record ed. [facility] [address], [place], [address], 01/02/2025 14:56:36 12/26/1912/24/2024 non-s tress test No observ ation record ed. [email or web address] [facility] [address], [place], [address], 12/27/2024 06:55:00 12/27/1912/26/2024 non-s tress test No observ ation record ed. [facility] [address], [place], [address], 2025 12:58:13 Result Notes None recorded. Problems Name Problem SNOMED Code Status Onset Date Resolution Date Notes Provider Name and Address Organization Details Recorded Time Bicornua te uterus 65550313 Active Maribel thompson, [facility] 5 20:40:58 Hypothyr oidism 79934543 Completed 100 mcgm levo rpt 4wks - 06/08 2.47 Casimiro thompson, [facility] 3 15:19:18 Artifici al insemina tion Completed IUI #3, by sp's student Tony thompson, [facility] 3 15:19:18 Deliveri es by [id number] Completed to repeat , wants BTL Huma Becker, [facility] [address], [place], [address], [facility] 5 19:51:55 Bicornua te uterus 79273031 Completed Maribel thompson, [facility] 5 20:40:58 Body mass index 30+ - obesity 700248701 Completed nst 37wks Maribel thompson, [facility] 5 20:44:30 Disorder of uterus 59688933 Completed 201908/13/2020 Humza Jones MD [address], [place], [address], [facility] 1 17:29:27 Pregnanc y 50737288 Completed 202110/20/2022 Tangela thompson, [facility] 5 14:31:17 Past pregnanc y history of section 498170878 Active 2022 Maribel thompson, [facility] 5 20:40:35 Past pregnanc y history of section 033946722 Completed 2022 Maribel Galvez null, [facility] 5 20:40:35 Pregnanc y 97842730 Completed 202401/09/2025 Tangela Martinez null, [facility] 5 14:31:17 Mixed anxiety and depressi ve disorder 056579830 Completed 2024 Maribel Galvez [facility], [facility] 5 20:42:25 Mixed anxiety and depressi ve disorder 836013980 Active 2024 Maribel Galvez [facility], [facility] 5 20:42:25 Hyperten barry AND/OR vomiting complica ting pregnanc y childbir th AND/OR puerperi 553010733 Completed 2024 delivery at 37 weeks ENOCH BARDALES MD [address], [place], [address], [facility] 5 17:25:54 Problem Notes None recorded. Procedures Surgical History Date Name Laterality Status Provider Name and Address Organization Details Recorded Time 2022 Date of Last Pap Smear completed Maribel Galvez [facility] 3 16:57:09 2022 Caesarean Section completed Maribel Galvez [facility] 4 15:33:01 2021 intrauterine artificial insemination completed Maribelanders Galvez [facility] 2 08:50:44 2021 intrauterine artificial insemination completed Maribel Galvez [facility] 2 08:40:07 2021 intrauterine artificial insemination completed Maribel Galvez [facility] 2 08:39:10 2020 fluoroscopic hysterosalpingography with contrast completed Maribel Galvez [facility] 1 15:58:35 2019 Endometrial Biopsy completed Ernie Jones MD [address], [place], [address], [place] [facility] 0 19:41:26 Imaging Results None recorded. Procedure Notes None recorded. Medical Equipment None Reported. Allergies No known drug allergies Medications Name Sig Start Date Stop Date Status Note LastModified by Organization Details LastModified Time nifedipine ER 30 mg tablet,exte nded release 24 hr TAKE 1 TABLET BY MOUTH EVERY DAY 01/17 completed Not Available Not Available Not Available clomiphene citrate 50 mg tablet TAKE 2 TABLETS BY MOUTH DAILY ON DAYS 5-9 DIRECTED 10/23 completed Not Available Not Available Not Available hydrocodone 5 mg-acetamin ophen 325 mg tablet TAKE 1 TABLET BY MOUTH EVERY 3 HOURS NEEDED 02/27 completed Not Available Not Available Not Available sertraline 100 mg tablet TAKE 1 TABLET BY MOUTH EVERY DAY active Not Available Not Available No t Available Pregnyl 10,000 unit intramuscul ar solution Inject 1 unit by intramusc ular route. 03/12 completed Not Available Not Available Not Available ondansetron 8 mg disintegrat ing tablet DISSOLVE 1 TABLET ON THE TONGUE TWICE DAILY 11/07 completed Not Available Not Available Not Available levothyroxi ne 25 mcg tablet TAKE 1 TABLET BY MOUTH EVERY DAY 03/12 completed Not Available Not Available Not Available levothyroxi ne 100 mcg tablet TAKE 1 TABLET BY MOUTH EVERY DAY DIRECTED 10/08 completed Not Available Not Available Not Available levothyroxi ne 88 mcg tablet TAKE 1 TABLET BY MOUTH EVERY DAY 05/28 completed Not Available Not Available Not Available Nortrel 0.5/35 (28) 0.5 mg-35 mcg tablet TAKE 1 TABLET BY MOUTH EVERY DAY 07/18 completed Not Available Not Available Not Available levothyroxi ne 50 mcg tablet TAKE 1 TABLET BY MOUTH EVERY DAY 03/12 completed Not Available Not Available Not Available progesteron e micronized 200 mg capsule TAKE 1 CAPSULE BY MOUTH EVERY DAY FOR 12 DAYS 03/12 completed Not Available Not Available Not Available sertraline 25 mg tablet TAKE 1 TABLET BY MOUTH EVERY DAY 10/23 completed Not Available Not Available Not Available cephalexin 500 mg tablet TAKE 1 TABLET BY MOUTH EVERY 12 HOURS FOR 5 DAYS active Not Available Not Available No t Available labetalol 300 mg tablet TAKE 1 TABLET BY MOUTH TWICE DAILY active Not Available Not Available No t Available letrozole 2.5 mg tablet TAKE 2 TABLETS BY MOUTH ONE DAYS 3-7 OF CYCLE 03/12 completed Not Available Not Available Not Available sertraline 50 mg tablet TAKE 1 TABLET BY MOUTH EVERY DAY 02/27 completed Not Available Not Available Not Available oxycodone 5 mg tablet TAKE 1 TABLET BY MOUTH EVERY 4 HOURS NEEDED FOR PAIN. RATED 4-6 FOR 2 WEEKS active Not Available Not Available No t Available nitrofurant oin monohydrate /macrocryst als 100 mg capsule TAKE 1 CAPSULE BY MOUTH EVERY 12 HOURS FOR 7 DAYS 08/10 completed Not Available Not Available Not Available Tylenol 02/27 completed Not Available Not Available Not Available active Not Available Not Avai lable Not Available Vitamin 10/25 completed Not Available Not Available Not Available butalbital- acetaminoph en-caffeine 50 mg-300 mg-40 mg capsule TAKE ONE CAPSULE BY MOUTH EVERY 4 HOURS 02/27 completed Not Available Not Available Not Available Blisovi Fe 05/02 (28) 1 mg-20 mcg (21)/75 mg (7) tablet TAKE 1 TABLET BY MOUTH EVERY DAY 02/27 completed Not Available Not Available Not Available Vitals Date Recorded Body height Body mass index (BMI) Body weight Systolic And Diastolic Provider Name and Address Organization Details Last Updated DateTime 12/21/2024 162.56 cm 41.7 kg/m2 752214.95 g 142/84 mm[Hg] Erlinda Green [facility] 12/21/2024 17:14:19 Date Recorded Body weight Systolic And Diastolic Provider Name and Address Organization Details Last Updated DateTime 12/27/2024 112107.35669 g 143/87 mm[Hg] Tangela [facility]ford [facility] 12/27/2024 17:08:13 Date Recorded Body weight Body mass index (BMI) Body height Systolic And Diastolic Systolic And Diastolic Systolic And Diastolic Provider Name and Address Organization Details Last Updated DateTime 300331. 11203 g 40.5 kg/m2 162.56 cm 160/93 mm[Hg] 170/92 mm[Hg] 154/88 mm[Hg] Tangela [facility] 14:45:25 Date Recorded Body height Body mass index (BMI) Body weight Systolic And Diastolic Provider Name and Address Organization Details Last Updated DateTime 01/17/2025 162.56 cm 38.8 kg/m2 465377.16 g 155/96 mm[Hg] Leslie Pearsonton [facility] 01/17/2025 17:42:35 Social History Question Answer Notes LastModified by Organizat ion Details LastModified Time Tobacco Smoking Status Former Smoker Maribel thompson, [facility] 07/18/2020 18:14:12 Do You Have An Advance Directive? No Information n ot available 06/20/2020 If You Are , What Was Your Level Of Alcohol Consumption Prior To ? Moderate [email or web address] Information not available 07/13/2024 How Many Years Have You Consumed Alcohol? 12 [email or web address] Information not available 10/09/2023 Are You Blind Or Do You Have Difficulty Seeing? No Information n ot available 06/20/2020 What Is Your Level Of Caffeine Consumption? Moderate Information not available 06/20/2020 How Much Tobacco Do You Chew? None Information not available 06/20/2020 In The 14 Days Before Symptom Onset, Have You Had Close Contact With A Laboratory-confirm ed COVID-19 While That Case Was Ill? No Information n ot available 06/20/2020 In The 14 Days Before Symptom Onset, Have You Had Close Contact With A Person Who Is Under Investigation For COVID-19 While That Person Was Ill? No Information not available 06/20/2020 Have You Been To An Area Known To Be High Risk For COVID-19? No Information not available 06/20/2020 Are You Deaf Or Do You Have Serious Difficulty Hearing? No Information not available 06/20/2020 What Type Of Diet Are You Following? REGULAR Information n ot available 06/20/2020 What Is The Highest Grade Or Level Of School You Have Completed Or The Highest Degree You Have Received? [id number] [email or web address] Information not available 10/09/2023 Are There Any Guns Present In Your Home? No Information not available 06/20/2020 Have You Ever Been Counseled For Unhealthy Alcohol Use? No Information not available 07/18/2020 Do You Use Protection During Sex? No Information not available 06/20/2020 Do You Use Your Seat Belt Or Car Seat Routinely? Yes Information not available 06/20/2020 Do You Have Smoke And Carbon Monoxide Detectors In Your Home? Yes Information not available 06/20/2020 At What Age Did You Start Smoking Tobacco? 19 Information not available 06/20/2020 How Much Tobacco Do You Smoke? No Information not available 06/20/2020 Do You Use Sunscreen Routinely? Yes Information not available 06/20/2020 Has Tobacco Cessation Counseling Been Provided? No [email or web address] Information not available 07/18/2020 How Many Years Have You Smoked Tobacco? 10 Information not available 06/20/2020 Have You Used IV Drugs? No Information not available 06/20/2020 Do You Have Difficulty Walking Or Climbing Stairs? No [email or web address] Information not available 10/23/2021 Sex: Unknown Functional Status Question Answer Note LastModified by Organizat ion Details LastModified Time Do you use any illicit or recreational drugs? No Information not available 06/20/2020 Do you or have you ever used any other forms of tobacco or nicotine? No [email or web address] Information not available 07/18/2020 What is your level of alcohol consumption? None Every other weekend [email or web address] Information not available 07/13/2024 Are you able to walk independently without assistance or assistive devices? [email or web address] Information not available 06/20/2020 Are you able to care for yourself independently? Yes [email or web address] Information not available 10/23/2021 What is your occupation? Student Information not available 06/20/2020 Do you have difficulty dressing, bathing, grooming, or toileting? No [email or web address] Information not available 10/23/2021 What is your exercise level? Occasional Information not available 06/20/2020 Mental Status Question Answer Note LastModified by Organization D etails LastModified Time Do you feel stressed (tense, restless, nervous, or anxious, or unable to sleep at night)? [id number] Information not available 06/20/2020 Family History Relationship Description Onset Age of this Age Resolved Age Notes LastModified by Organization Details LastModified Time Unspecified Relation Family history of breast cancer Great grandm other Matern al [email or web address] Not available 10/16/2023 11:14:38 Paternal Grandfather Family history of blood coagulation disorder hemoph lou [email or web address] Not available 10/16/2023 11:14:38 Paternal Grandfather Heart disease Not available 2020 18:07:19 Sister Family history of blood coagulation disorder Not available 2023 11:14:38 Sister Anemia Not available 07/11/2020 18:07:19 Mother Malignant neoplasm of kidney remove d [email or web address] Not available 10/16/2023 11:14:38 Mother Anemia Not available 07/11/2020 18:07:19 Father Hypercholest erolemia Not available 2020 18:07:19 Father Diabetes mellitus Not available 2020 18:07:19 Father Hypertensive disorder Not available 2020 18:07:19 Maternal Grandfather Heart disease Not available 2020 18:07:19 Brother Asthma Not available 07/11/2020 18:07:19 Medical History Condition Response Allergies (Food, seasonal, environmental ) N Other Y Breast Cancer N Drug/Latex Allergies/Reactions N Blood Transfusion N Dermatologic Disorders N Lung Disease N Defects or Inherited Disease N Breast Problem N Gestational Diabetes N Hematologic disorders N Anesthesia Complications N History of STI N Deep Vein Thrombosis N Polycystic ovary syndrome N Anxiety Disorder Y Autoimmune disease N Arthritis N Infertility N Polyps N Acid Reflux (GERD) N History of abnormal pap N Cancer N Stroke N Varicosities N Neurologic/Epilepsy N Endometriosis N High Cholesterol N Headaches N Fibromyalgia N Kidney Disease N Heart Problems N Kidney or Bladder Problems N Thyroid Problems Y GI Problems N Eating Disorder N Anemia N Art (IVF or FET) N Psychiatric Illness N Ovarian Cancer N Diabetes N Pulmonary (TB, Asthma) N Hepatitis/Liver Disease N No Past Medical History N Eczema N Urinary Tract Infection N Abuse/Domestic Violence N Asthma N Trauma/Violence N Depression/ depression Y Heart Disease N Pre-Eclampsia N Hypertension N Osteoporosis N Thrombophilias N Gynecological History Statement/Question Response Abnormal Pap N Date of Last Mammogram Date of LMP On BCP's at Conception? N Was last menstrual period normal Y STIs/STDs N HPV Vaccine Y 13 Current Control Method Age at First Child 32 Date of Last Colonoscopy Sexually Active? Y Date of DEXA bone scan Age of first menstrual cycle 14 Date of Last Pap Smear 02/27/2023 Sexual Problems? N LMP Approximate Obstetrics History GPAL:G 3 P 2 0 1 2 Type Value Full Term 2 Spontaneous 1 Living 2 Total 3 Past Encounters Encounter ID Performer Location Encounter Start Date Encounter Closed Date Diagnosis/Indication Diagnosis SNOMED-CT Code Diagnosis ICD10 Code Diagnosis IMO Codes Diagnosis Note [id number] [address] 02/14/2020 09:53:36 02/16/2020 16:42:29 Abnormal uterine bleeding [id number] 9100 N93.9 [id number] MD Indy Smith [address],[facility] [place] [address] 03/01/2020 14:51:18 03/01/2020 15:58:34 Abnormal uterine bleeding 8788993978 9100 N93.9 [id number] MD Indy Smith [address],[place] [address] 03/01/2020 14:52:38 03/02/2020 09:23:01 Abnormal uterine bleeding 8072902815 9100 N93.9 This patient is a 30-year-ol d female with many many years of anovulator y, irregularl y irregular bleeding. She is at risk for endometria l cancer so and endometria l biopsy was performed today. we will await biopsy results. The patient is incision . We going to control her bleeding and make it possible for her to get in the near future. We spent over 25 minutes face-to-fa ce. More than 50% was counseling [id number] MD Indy Smith [address],[place] [address] 03/05/2020 17:07:03 03/06/2020 12:58:24 Abnormal uterine bleeding 5512703765 9100 N93.9 this patient is a 30-year-ol d female presents for follow-up on abnormal uterine bleeding. She appears to have anovulator y bleeding. She has signs symptoms consistent with polycystic ovarian syndrome.W max discussed abnormal uterine bleeding and amenorrhea . We discussed polycystic ovarian syndrome. We discussed the diagnosis. We discussed the underlying disease process. We discussed laboratory evaluation . We discussed her ultrasound and laboratory results. We discussed the prevention of endometria l cancer. We discussed protecting the endometriu m and how that is carried out. We discussed treatment in the context of a desired . We discussed medical treatment. We discussed the risk associated with PCOS and long-term health outcomes. We agreed to use cyclic progestero ne. She was prescribed micronized progestero ne 200 mg. [id number] MD Indy Smith [address],[facility] [place] [address] 03/22/2020 09:49:47 03/22/2020 11:14:34 Abnormal uterine bleeding [id number] 9100 N93.9 This patient is a 30-year-ol d female presents for follow-up on abnormal uterine bleeding. Endometria l biopsy was normal. She did have some abnormal thyroid results. We going to repeat a thyroid panel today. We attempted to control bleeding with cyclic progestero ne. She bled after starting the progestero ne. I believe she needs to get her bleeding settled with 2 packs of oral contracept iraida pills. She agreed to do that. I prescribed 2 packs of 35 micro g pills. Beyond that she is going to use cyclic progestero ne. Her goal is to get . She will continue to focus on getting . we may treat with Clomid at sometime in the future. She return in 3 months. We spent 115 minutes face-to-fa ce. More than 50% was counseling . Disorder o f thyroid gland 65407781 E07.9 [id number] Ernie Jones MD [facility] [address],[facility] [place] [address] 06/20/2020 17:19:46 06/21/2020 12:26:01 Mixed anxiety and depressive disorder 270954602 F41.8 Abnormal u terine bleeding 4994794660 9100 N93.9 This patient is a 30-year-ol d female who presents for follow-up on abnormal uterine bleeding and anovulator y bleeding. She likely is a PCOS patient. We got her bleeding under control with 2 months of oral contracept iraida pills. It appears that she ovulated the cycle after the control pills. She had normal. And is approximat mignon day 6 mom the 1st day or last menstrual period. we are going to check a day 23 progestero ne. She is going to see SP . . . She is going to see SP around day 27. We are going to discuss ovulation induction. Patient notice some symptoms of depression after starting oral contracept iraida pills. We agreed to treat with Zoloft. She was started on 20/5 of Zoloft. She has about COVID vaccine. [id number] Ernie Jones MD [facility] [address],[facility] [place] [address] 07/11/2020 17:41:31 07/16/2020 13:17:37 Female infertility [id number] N97.9 This patient is a 30-year-ol d female presents for follow-up on an ovulatory bleeding in fertility concerns. Patient has been performing progestero ne withdrawal bleeds. patient is starting the cyclic progestero ne July 12. She should be finished on July 23. we agreed to hysterosal pingogram on July 30. She will see SP during her cyclic progestero ne treatment. Talked about ovulation induction. We talked about anovulator y bleeding. We talked about getting her bleeding under control, which we have done. Additional precaution carroll measures were taken to minimize potential exposure to the Covid-19 virus during this patient s visit, including available hand wrist liner upon arrive, temperatur e check and being asked a series of screening questions. All staff wore face coverings during this encounter, as well as provided additional cleaning and sanitizing of all surfaces, including countertop s, pens, chairs, door handles, light switches, etc, prior to and following the patient s visit. [id number] [facility] [address],[place] [address] 07/18/2020 18:00:23 07/22/2020 22:37:20 Anovulation [id number] N97.0 [id number] Ernie Jones MD [facility] [address],[place] [address] 07/31/2020 09:42:47 07/31/2020 09:43:43 [id number] Ernie Jones MD [facility] [address],[place] [address] 08/13/2020 16:28:06 08/13/2020 17:44:34 Female infertility 1460236 N97.9 d iscussed hCG results with the patient. 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 She understand s that there is A greater possibilit y of a breech presentati on with the . talked about her semen analysis results and her abnormal uterine bleeding laboratory evaluation . It is all essentiall y normal. Patient is going to be doing ovulation induction with Huma P. he will also perform intrauteri ne inseminati on. We talked about that process a little bit. [id number] Huma Becker CNM [facility] [address],[place] [address] 10/23/2021 16:46:22 10/23/2021 17:42:39 Irregular periods 42872766 N92.6 restart prometrium for irregular cycles, will call with cycle , letrozole 5 mg days 3-7 and then plan us and trigger injection day prior to IUI, all questions answered and handouts given f/u 3 month or ENRRIQUE ref if needed [id number] Ernie Jones MD [facility] [address],[place] [address] 11/18/2021 15:44:59 11/18/2021 16:52:30 Female infertility 6363427 N97.9 d iscussed hCG results with the patient. 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 She understand s that there is A greater possibilit y of a breech presentati on with the . talked about her semen analysis results and her abnormal uterine bleeding laboratory evaluation . It is all essentiall y normal. Patient is going to be doing ovulation induction with Huma P. he will also perform intrauteri ne inseminati on. We talked about that process a little bit. [id number] Ernie Jones MD [facility] [address],[place] [address] 11/19/2021 10:14:21 11/20/2021 15:15:27 Trying to conceive [id number] Z31.9 [id number] Huma Becker CNM [facility] [address],[place] [address] 11/20/2021 08:37:59 11/20/2021 10:22:09 Artificial insemination 15538663 Z31.83 [id number] Ernie Jones MD [facility] [address],[place] [address] 12/13/2021 13:24:10 12/13/2021 14:02:27 Female infertility [id number] N97.9 d iscussed hCG results with the patient. 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 She understand s that there is A greater possibilit y of a breech presentati on with the . talked about her semen analysis results and her abnormal uterine bleeding laboratory evaluation . It is all essentiall y normal. Patient is going to be doing ovulation induction with Huma P. he will also perform intrauteri ne inseminati on. We talked about that process a little bit. [id number] Ernie Jones MD [facility] [address],[place] [address] 12/17/2021 13:38:39 12/17/2021 14:56:44 Female infertility [id number] N97.9 d iscussed hCG results with the patient. 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 She understand s that there is A greater possibilit y of a breech presentati on with the . talked about her semen analysis results and her abnormal uterine bleeding laboratory evaluation . It is all essentiall y normal. Patient is going to be doing ovulation induction with Huma P. he will also perform intrauteri ne inseminati on. We talked about that process a little bit. [id number] Ernie Jones MD [facility] [address],[place] [address] 12/27/2021 15:54:38 12/30/2021 14:49:58 Female infertility [id number] N97.9 d iscussed hCG results with the patient. 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 She understand s that there is A greater possibilit y of a breech presentati on with the . talked about her semen analysis results and her abnormal uterine bleeding laboratory evaluation . It is all essentiall y normal. Patient is going to be doing ovulation induction with Huma P. he will also perform intrauteri ne inseminati on. We talked about that process a little bit. [id number] Huma Becker CNM [facility] [address],[place] [address] 12/27/2021 18:30:33 12/30/2021 17:50:43 Trying to conceive [id number] Z31.9 [id number] Huma Becker CNM [facility] [address],[place] [address] 12/28/2021 08:26:12 12/30/2021 18:00:52 Trying to conceive [id number] Z31.9 [id number] Ernie Jones MD [facility] [address],[place] [address] 01/21/2022 17:23:31 01/21/2022 17:58:24 Female infertility [id number] N97.9 d iscussed hCG results with the patient. 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 She understand s that there is A greater possibilit y of a breech presentati on with the . talked about her semen analysis results and her abnormal uterine bleeding laboratory evaluation . It is all essentiall y normal. Patient is going to be doing ovulation induction with Huma P. he will also perform intrauteri ne inseminati on. We talked about that process a little bit. [id number] Ernie Jones MD [facility] [address],[place] [address] 01/23/2022 17:20:23 01/23/2022 18:04:24 Female infertility [id number] N97.9 d iscussed hCG results with the patient. 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 She understand s that there is A greater possibilit y of a breech presentati on with the . talked about her semen analysis results and her abnormal uterine bleeding laboratory evaluation . It is all essentiall y normal. Patient is going to be doing ovulation induction with Huma P. he will also perform intrauteri ne inseminati on. We talked about that process a little bit. [id number] Huma Becker CNM [facility] [address],[place] [address] 01/23/2022 18:10:00 01/24/2022 15:53:58 Trying to conceive [id number] Z31.9 [id number] Huma Becker CNM [facility] [address],[place] [address] 01/24/2022 08:42:01 01/24/2022 09:52:59 Artificial insemination [id number] Z31.83 [id number] Ernie Jones MD [facility] [address],[place] [address] 02/26/2022 17:39:32 02/26/2022 18:14:24 [id number] Ernie Jones MD [facility] [address],[place] [address] 03/12/2022 16:40:38 03/12/2022 18:06:06 [id number] [facility] [address],[place] [address] 03/12/2022 16:41:25 03/12/2022 18:53:07 test positive [id number] Z32.01 Amenorrhea [id number] N91. 2 [id number] Ernie Jones MD [facility] [address],[place] [address] 04/10/2022 09:14:25 04/10/2022 10:02:32 screening [id number] Z36.82 [id number] Ernie Jones MD [facility] [address],[place] [address] 04/10/2022 09:15:29 04/10/2022 11:58:14 Routine care 430853146 Z34.81 [id number] [facility] [address],[place] [address] 1 05/07/2022 16:49:16 05/09/2022 16:29:12 Routine care [id number] Z34.91 [id number] Ernie Jones MD [facility] [address],[place] [address] 05/28/2022 16:15:24 05/28/2022 18:19:57 screening for malformation 216764623 Z36.3 Z3A.19 [id number] [facility] [address],[place] [address] 05/28/2022 16:15:41 05/28/2022 18:16:43 [id number] MD Indy Smith [address],[place] [address] 06/25/2022 16:18:43 06/25/2022 17:14:41 screening [id number] Z36.2 [id number] [facility] [address],[place] [address] 06/25/2022 16:19:09 06/25/2022 17:58:19 Routine care [id number] Z34.91 [id number] Ernie Jones MD [facility] [address],[place] [address] 07/25/2022 10:41:38 07/25/2022 13:23:13 Bicornuate uterus affecting obstetric care 706839207 O34.599 Z3A.27 [id number] [facility] [address],[place] [address] 07/25/2022 10:41:57 07/25/2022 12:10:27 Routine care [id number] Z34.91 [id number] [facility] [address],[place] [address] 1 08/08/2022 14:45:21 08/08/2022 15:56:57 Routine care [id number] Z34.91 [id number] Ernie Jones MD [facility] [address],[place] [address] 08/22/2022 15:58:05 08/22/2022 16:40:04 Bicornuate uterus affecting obstetric care [id number] O34.599 Z3A.31 [id number] [facility] [address],[place] [address] 08/22/2022 15:59:24 08/22/2022 17:13:01 Routine care [id number] Z34.91 [id number] [facility] [address],[place] [address] 09/05/2022 15:15:24 09/05/2022 15:43:03 Routine care 672710550 Z34.91 [id number] Ernie Jones MD [facility] [address],[place] [address] 09/19/2022 10:46:16 09/19/2022 11:37:33 Bicornuate uterus affecting obstetric care 370318114 O34.599 Z3A.35 [id number] Huma Becker [facility] [address],[place] [address] 09/19/2022 10:46:49 09/19/2022 12:04:08 Routine care [id number] Z34.91 [id number] Ernie Jones MD [facility] [address],[place] [address] 1 09/25/2022 15:26:13 09/25/2022 15:48:08 Routine care [id number] Z34.81 [id number] Huma Becker [facility] [address],[place] [address] 10/01/2022 17:01:00 10/01/2022 17:52:51 Routine care 884671086 Z34.91 [id number] Huma Becker [facility] [address],[place] [address] 10/10/2022 15:11:40 10/10/2022 15:38:48 Routine care 053765067 Z34.91 [id number] Ernie Jones MD [facility] [address],[place] [address] 10/25/2022 10:55:07 10/25/2022 11:53:31 Mixed anxiety and depressive disorder 986627029 F41.8 This patient is a 32-year-ol d female who presents for postop follow-up. She is 1 week postop from a delivery. Her incision is clean dry and intact. She has no complaints . Her bleeding is minimal. She denies any nausea, vomiting, fever, chills. She denies any chest pain or shortness of breath. Her baby is doing well. Her mood is good. care [id number] 8 Z39.2 [id number] Huma Becker [facility] [address],[place] [address] 11/14/2022 15:43:15 11/14/2022 17:25:40 care 601183284 Z39.2 reviewed se risks and benefits including blood clot, mi stroke, to start thursday, give one month to be effectivep baron wwe in 3 mo Anxiety 30904123 F41.9 [id number] Huma Becker [facility] [address],[place] [address] 02/27/2023 16:49:42 03/01/2023 15:26:54 Gynecologic examination 00473164 Z01.419 start pnv [id number] Ernie Jones MD [facility] [address],[place] [address] 10/09/2023 14:46:27 10/09/2023 15:42:17 Uncertain viability of 418662266 O36.80X9 O26.841 Z3A.01 [id number] Huma Becker [facility] [address],[place] [address] 10/09/2023 14:47:15 10/09/2023 15:58:56 Threatened miscarriage in first trimester 27217624 O20.0 reviewed US, plan labs today and Thursdayif increases will plan US next week, if decreasing will follow to [facility]eroc[facility] if any questions or concerns [id number] Ernie Jones MD [facility] [address],[place] [address] 10/16/2023 11:14:28 10/16/2023 12:17:14 Missed miscarriage 06275106 O02.1 Z3A.01 [id number] MD Indy Smith [address],[place] [address] 06/07/2024 17:25:14 06/07/2024 18:18:43 screening 661802173 Z36.87 Z3A.01 [id number] Ernie Jones MD [facility] [address],[place] [address] 06/20/2024 17:08:26 06/20/2024 18:06:45 Nausea and vomiting 83422606 R11.2 Mixed anxi ety and depressive disorder 537171593 F41.8 Amenorrhea 48224642 N91. 2 this patient is a 34-year-ol d female who presents for amenorrhea . She is a positive test. Ultrasound revealed a 1st trimester gestation. Patient has no complaints . We talked about early care. Talked about genetic screening. We talked about her ultrasound results. We talked about the 12 week ultrasound that has genetic screening components . She was given recommenda tions on exercise, diet, over-the-c ounter medication s. We reviewed her obstetric history. We reviewed her medical history. We reviewed her social history. She will begin routine care at her next visit. [id number] Ernie Jones MD [facility] [address],[place] [address] 07/13/2024 16:46:40 07/13/2024 18:10:28 screening 868538631 Z36.82 Z3A.12 [id number] Ernie Jones MD [facility] [address],[place] [address] 07/13/2024 16:48:47 07/14/2024 16:41:32 Gestation period, 12 weeks 96917515 Z3A.12 Routine an tenatal care 978024032 Z34.81 [id number] Ernie Jones MD [facility] [address],[place] [address] 08/10/2024 18:11:05 08/11/2024 09:40:54 care status 919867738 Z34.82 [id number] Ernie Jones MD [facility] [address],[place] [address] 09/07/2024 16:49:24 09/08/2024 02:06:10 Ultrasound scan - obstetric 507325679 Z36.3 O99.210 Z3A.20 [id number] Huma Becker [facility] [address],[place] [address] 09/07/2024 16:49:48 09/08/2024 09:10:52 Gestation period, 20 weeks 89773406 Z3A.20 [id number] [id number] Ernie Jones MD [facility] [address],[place] [address] 10/05/2024 17:04:48 10/06/2024 09:15:23 Follow-up encounter 641208408 Z36.2 O34.02 Z3A.24 [id number] Huma Becker [facility] [address],[place] [address] 10/05/2024 17:06:52 10/07/2024 09:17:47 Gestation period, 24 weeks 026667384 Z3A.24 2009787 [id number] Ernie Jones MD [facility] [address],[place] [address] 11/07/2024 14:02:38 11/07/2024 15:06:40 section following previous section 585556114 O34.219 Female sterilization 608 78889 Z30.2 care status 24 4665176 Z34.83 30469709 [id number] Huma Becker [facility] [address],[place] [address] 11/23/2024 17:39:17 11/24/2024 03:35:03 Gestation period, 31 weeks 60196694 Z3A.31 6498502 [id number] ENOCH BARDALES MD [facility] [address],[place] [address] 12/05/2024 16:46:12 12/05/2024 17:56:32 Obesity 928131394 O99.213 O34.03 Z3A.33 14677781 [id number] MD Indy FRANKLIN [address],[place] [address] 12/09/2024 16:45:59 12/10/2024 09:41:40 Body mass index 30+ - obesity 820863040 O99.213 O34.03 Z3A.33 Bicornuate uterus 082707 03 Q51.3 Past pregn river history of section 408102600 Z98.891 Gestation period, 33 weeks 06339711 Z3A.33 2606225 [id number] Huma Becker [facility] [address],[place] [address] 12/21/2024 17:04:04 12/22/2024 09:02:02 Gestation period, 35 weeks 66269774 Z3A.35 1674494 [id number] ENOCH BARDALES MD [facility] [address],[place] [address] 12/27/2024 16:47:55 12/27/2024 17:29:05 Past history of section 316075748 Z98.891 Hypertensi on AND/OR vomiting complicating childbirth AND/OR puerperium 547298999 O13.3 3691391 Gestation period, 36 weeks 12634424 Z3A.36 0836375 [id number] ENOCH BARDALES MD [facility] [address],[place] [address] 01/02/2025 10:52:44 01/02/2025 14:20:20 [id number] ENOCH BARDALES MD [facility] [address],[place] [address] 01/09/2025 14:18:55 01/09/2025 15:05:56 care status 870960026 Z39.2 6545206 S/p c section and bilateral salpingect alvaro on . Incision well-heale d without any signs of infection2 . RTC 4wks for post-partu m check Past pregn river history of gestational hypertension 292605327 Z87.59 [id number] - delivered at 37 weeks due to gestationa l hypertensi on- asymptomat ic- BP 154/88 today- will keep BP log this week and call at end of the week to review [id number] ENOCH BARDALES MD [facility] [address],[place] [address] 01/17/2025 17:35:51 01/17/2025 17:46:32 Health Concerns Section Related Observation LastModified by Organization Detai ls LastModified Time None Recorded Concern Status LastModified by Organization Details LastModified Time None Recorded Advance Directives Directive N: Payers Insurance Date Sequence Insurance Name Policy Number Policy Espinosa Covered Member ID Espinosa Member ID Guarantor Name 11/22/[address] [facility] Emelina Jonesoshnancy [id number] Emelina Ovalle Kroeschel 01/14/2025 2 [facility] [employer] [place] Sommers Kroeschel [id number] Emelina Ovalle Kroeschel 02/23/2020 *SELF PAY* Lázaro Ovalle Kroeschel 01/14/2025 1 [place] [id number] Emelina Dhillonschnancy [id number] Emelina Yamile Jonesoeschnancy Notes Date Note Type Note Provider Name and Address Organization Details Recorded Time 12/21/2024 text/html Generic HPI TemplateReported by Patient Huma Becker CNM [address], [place], [address], [facility] 12/21/2024 17:25:02 12/27/2024 text/html Generic HPI TemplateReported by Patient Tangela thompson, [facility] 12/27/2024 17:37:43 01/09/2025 text/html s/p C/S 01/02/25. She presents today for her incision check. Her postop course has been unremarkable. She has minimal spotting, denies pain, fever or any other concerning symptoms. She is combo feeding and her baby is doing well. Her mood is good. Asymptomatic for preeclampsia standpoint. ENOCH BARDALES MD [address], [place], [address], [facility] 01/09/2025 14:58:24 OBGyn Episode Ob Episode Information Episode Created Date Number of Fetuses Patient Bloodtype Patient rh Status Prepregnancy Weight lbs Domestic Partner Domestic Partner Phone Father Name Trade Facilitator Status 04/10/20 22 1 AB Positive 227 CLOSED Fetus Data First Name Last Name Admitted to NICU Weight (g) Sex Living Outcome Pediatric Complications Fetus ID Race Codes Race Delivery Type 3410.46 [id number] M true Full Term failure to descend, non-reassuring fhts [id number] Primary Problems Problem Notes bmi pre-preg 34 Problem Name Start Date End Date Resolution Snomed Code Not e Hypothyroidism 71742191 100 m cgm levo rpt 4wks - 06/08 2.47 Artificial insemination [id number] IUI #3, by [employer] student Tony Sushant Calculation Initial Sushant Date Initial Exam Date Initial Exam Provider Initial Ultrasound Date Last Menstrual Period Date Ultra Sound Weeks Gestation 10/21/2022 04/10/2022 02/26/2022 01/11/2022 6 Eighteen To Twenty Week Sushant Update Ultra Sound Date Fundal Height At Umbil Quickening Date Ultra Sound Latest Weeks Gestation Final Sushant Confirmed By Final Sushant Confirmed Date Final Sushant Date Ultra Sound Latest Days Gestation 0 [email or web address] 04/10/2022 10/19/19 23 0 Pre- Flowsheet Flowsheet Date 04/10/2022 Guerrero Score Blood Edema Fundus Height Fundus Units Glucose Ketones Leukocytes Nitrite Labor Signs Protein Cervic Dilation Cervic Effacement Cervic Station 12 Type Weight in lbs Pre/Post Dialysis Refused Weight 226.098874890711 BP Diastolic BP Location Tested BP Systolic BP Type 85 R arm 128 sitting Fetus Heart Rate Present A 145 Fetus Movement Comments this patient is a 32-year-ol d 1 at 12 weeks gestation who presents for initial care. She is vaccinated for COVID. She was given vaccine recommendations. She has hypothyroidism and has been treated. She is stable. She has no complaints. We talked about care in detail. She will begin routine care. Thank you Flowsheet Date 05/07/2022 Guerrero Score Blood Edema Fundus Height Fundus Units Glucose Ketones Leukocytes Nitrite Labor Signs Protein Cervic Dilation Cervic Effacement Cervic Station neg none none trace Type Weight in lbs Pre/Post Dialysis Refused Weight 223.185535220536 BP Diastolic BP Location Tested BP Systolic BP Type 82 130 Fetus Heart Rate Present A 145 Fetus Movement A Yes Comments patient is having headaches. fioricet rx, need to check TSH today, difficult blood draw. having a boy! plan 4 week anatomy screen. friend has a baby with CMV, and is deaf, discussed CMV, testing, results, all questions answered. precautions reviewed Flowsheet Date 05/28/2022 Guerrero Score Blood Edema Fundus Height Fundus Units Glucose Ketones Leukocytes Nitrite Labor Signs Protein Cervic Dilation Cervic Effacement Cervic Station Type Weight in lbs Pre/Post Dialysis Refused BP Diastolic BP Location Tested BP Systolic BP Type Fetus Heart Rate Present Fetus Movement Comments Flowsheet Date 05/28/2022 Guerrero Score Blood Edema Fundus Height Fundus Units Glucose Ketones Leukocytes Nitrite Labor Signs Protein Cervic Dilation Cervic Effacement Cervic Station Type Weight in lbs Pre/Post Dialysis Refused Weight 225.329196453386 BP Diastolic BP Location Tested BP Systolic BP Type 71 113 Fetus Heart Rate Present Fetus Movement Comments anatomy incomplete, will franco ck tsh in [place] next week, precautions reviewed f/u 4 weeks Flowsheet Date 06/25/2022 Guerrero Score Blood Edema Fundus Height Fundus Units Glucose Ketones Leukocytes Nitrite Labor Signs Protein Cervic Dilation Cervic Effacement Cervic Station Type Weight in lbs Pre/Post Dialysis Refused BP Diastolic BP Location Tested BP Systolic BP Type Fetus Heart Rate Present Fetus Movement Comments Flowsheet Date 06/25/2022 Guerrero Score Blood Edema Fundus Height Fundus Units Glucose Ketones Leukocytes Nitrite Labor Signs Protein Cervic Dilation Cervic Effacement Cervic Station neg none none trace Type Weight in lbs Pre/Post Dialysis Refused Weight 226.168704275123 BP Diastolic BP Location Tested BP Systolic BP Type 75 132 Fetus Heart Rate Present Fetus Movement A Yes Comments patient states that having s ome pelvic pain. discussed ice, rest, yoga ball helping. anatomy complete, precautions regarding ptl discussed , transverse lie today, plan growth in 4 weeks : bicornuate uterus. will also plan GCT Flowsheet Date 07/25/2022 Guerrero Score Blood Edema Fundus Height Fundus Units Glucose Ketones Leukocytes Nitrite Labor Signs Protein Cervic Dilation Cervic Effacement Cervic Station Type Weight in lbs Pre/Post Dialysis Refused BP Diastolic BP Location Tested BP Systolic BP Type Fetus Heart Rate Present Fetus Movement Comments Flowsheet Date 07/25/2022 Guerrero Score Blood Edema Fundus Height Fundus Units Glucose Ketones Leukocytes Nitrite Labor Signs Protein Cervic Dilation Cervic Effacement Cervic Station neg none none trace Type Weight in lbs Pre/Post Dialysis Refused Weight 227.240147868323 BP Diastolic BP Location Tested BP Systolic BP Type 77 114 Fetus Heart Rate Present Fetus Movement A Yes Comments TSH and GCT today efw79%, pt l precautions, ok for tdap, start q 2 week visits, education done Flowsheet Date 08/08/2022 Guerrero Score Blood Edema Fundus Height Fundus Units Glucose Ketones Leukocytes Nitrite Labor Signs Protein Cervic Dilation Cervic Effacement Cervic Station neg none 30 none trace Type Weight in lbs Pre/Post Dialysis Refused Weight 229.454780497194 BP Diastolic BP Location Tested BP Systolic BP Type 78 144 Fetus Heart Rate Present A 155 Present Fetus Movement A Yes Comments patient is having pelvic yoan n. discussed ice, yoga ball. 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 Flowsheet Date 08/22/2022 Guerrero Score Blood Edema Fundus Height Fundus Units Glucose Ketones Leukocytes Nitrite Labor Signs Protein Cervic Dilation Cervic Effacement Cervic Station Type Weight in lbs Pre/Post Dialysis Refused BP Diastolic BP Location Tested BP Systolic BP Type Fetus Heart Rate Present Fetus Movement Comments Flowsheet Date 08/22/2022 Guerrero Score Blood Edema Fundus Height Fundus Units Glucose Ketones Leukocytes Nitrite Labor Signs Protein Cervic Dilation Cervic Effacement Cervic Station neg none none trace Type Weight in lbs Pre/Post Dialysis Refused Weight 229.394888074400 BP Diastolic BP Location Tested BP Systolic BP Type 79 125 Fetus Heart Rate Present Fetus Movement A Yes Comments patient states that having v ision changes, contractions and nausea. saw spots x 1 incidence while at rest, resolved on their own. bp at that time normotensive, precautions reviewed, labs as baseline f/u 2 weeks EFW 31% today Flowsheet Date 09/05/2022 Guerrero Score Blood Edema Fundus Height Fundus Units Glucose Ketones Leukocytes Nitrite Labor Signs Protein Cervic Dilation Cervic Effacement Cervic Station neg none 35 none trace Type Weight in lbs Pre/Post Dialysis Refused Weight 231.941703306052 BP Diastolic BP Location Tested BP Systolic BP Type 84 137 Fetus Heart Rate Present A 143 Present Fetus Movement A Yes Comments patient is having some contr actions and swelling. denies ramirez, visual changes, epigastric pain, PTL precautions reviewed. preadmit 6/9 gbs at next visit f/u 2 weeks Flowsheet Date 09/19/2022 Guerrero Score Blood Edema Fundus Height Fundus Units Glucose Ketones Leukocytes Nitrite Labor Signs Protein Cervic Dilation Cervic Effacement Cervic Station Type Weight in lbs Pre/Post Dialysis Refused BP Diastolic BP Location Tested BP Systolic BP Type Fetus Heart Rate Present Fetus Movement Comments Flowsheet Date 09/19/2022 Guerrero Score Blood Edema Fundus Height Fundus Units Glucose Ketones Leukocytes Nitrite Labor Signs Protein Cervic Dilation Cervic Effacement Cervic Station neg trace none trace Type Weight in lbs Pre/Post Dialysis Refused Weight 230.647912675349 BP Diastolic BP Location Tested BP Systolic BP Type 82 128 Fetus Heart Rate Present Fetus Movement A Yes Comments patient states that having s ome cramping, contractions and swelling.cervix closed/soft, gbs done , has preadmit today, labor and ob precautions efw 35% f/u one week Flowsheet Date 09/25/2022 Guerrero Score Blood Edema Fundus Height Fundus Units Glucose Ketones Leukocytes Nitrite Labor Signs Protein Cervic Dilation Cervic Effacement Cervic Station 36 Type Weight in lbs Pre/Post Dialysis Refused Weight 231.545149036092 BP Diastolic BP Location Tested BP Systolic BP Type 82 R arm 130 sitting Fetus Heart Rate Present A 143 Fetus Movement A Yes Comments no complaints, no problems, routine care Flowsheet Date 10/01/2022 Guerrero Score Blood Edema Fundus Height Fundus Units Glucose Ketones Leukocytes Nitrite Labor Signs Protein Cervic Dilation Cervic Effacement Cervic Station neg none none trace 0cm 30% -2 Type Weight in lbs Pre/Post Dialysis Refused Weight 233.428735230573 BP Diastolic BP Location Tested BP Systolic BP Type 86 129 Fetus Heart Rate Present Fetus Movement A Yes Comments patient states that having s ome pain, contractions, nausea and vomiting. plan cervidil IOL elective 10/14 at 1700, reviewed ob precautions, labor precautions Flowsheet Date 10/10/2022 Guerrero Score Blood Edema Fundus Height Fundus Units Glucose Ketones Leukocytes Nitrite Labor Signs Protein Cervic Dilation Cervic Effacement Cervic Station neg trace 38 none trace 0cm 40% -3 Type Weight in lbs Pre/Post Dialysis Refused Weight 233.213133682125 BP Diastolic BP Location Tested BP Systolic BP Type 92 151 90 150 Fetus Heart Rate Present A 144 Present Fetus Movement A Yes Comments patient is having some pain, contractions and swelling. labor precautions reviewed pih precautions TO LD for lab evaluation Menstrual History Last Menstrual Date Menses Monthly On Bcp Conception Prior Menses Frequency Hcg Plus Date Menarche Onset Age 1001/11/2022 Genetic Screening And Infection History Question Response Note Mental Retardation/Autism false Patient's Age Will Be 35 Years Or Older At Estim ated Date of Delivery false Thalassemia (Tamazight, French, Mediterranean, Or Background): MCV < 80 false Neural Tube Defect (Meningomyelocele, Spina Bifi da, Or Anencephaly) false Congenital Heart Defect false Down Syndrome false Devendra-Sachs (eg, Nondenominational, Cajun, Maltese-[place]) f alse Claudette Disease false Sickle Cell Disease Or Trait () false Hemophilia Or Other Blood Disorders false Muscular Dystrophy false Cystic Fibrosis false [place]'s Chorea false Intellectual Disability/Autism false If Yes, Was Person Tested For Fragile X? false Other Inherited Genetic Or Chromosomal Disorder false Maternal Metabolic Disorder (eg, Type 1 Diabetes , PKU) false Patient Or Baby's Father Had A Child With Defects Not Listed Above false Recurrent Loss, Or A Stillbirth false Medications (including Suppl ements, Vitamins, Herbs, OTC Drugs), Illicit/Recreational Drugs, Alcohol false If Yes, Agent(s) And Strength/Dosage false Any Other Genetic History false Live With Someone With TB Or Exposed To TB false Patient Or Partner Has History Of Genital Herpes false Rash Or Viral Illness Since Last Menstrual Perio d false History Of STD, Gonorrhea, Chlamydia, HPV, Syphi lis false Other Infection History false History of HIV false History of Hepatitis false Prior GBS-infected child false Hemoglobinopathy Or Carrier false Other Structural Defect false Recent Travel History Outside of Country false Delivery Information Delivery Date Delivery Type Labor Anesthesia Weeks Gestation Incision Type Labor Labor Length Hrs Delivered By Post Complications Tubal Sterilization Discharge Date Comments 3 Induce d [facility] 39.5 Low Transvers e false Ernie Jones MD IUI, hypothyro idism Discharge Information Feeding Method Contraceptive Method Maternal HG B and HCT Levels Ob Episode Information Episode Created Date Number of Fetuses Patient Bloodtype Patient rh Status Prepregnancy Weight lbs Domestic Partner Domestic Partner Phone Father Name Trade Facilitator Status 10/09/19 24 1 CLOSED Fetus Data First Name Last Name Admitted to NICU Weight (g) Sex Living Outcome Pediatric Complications Fetus ID Race Codes Race Delivery Type , Spontane ous [id number] Sushant Calculation Initial Sushant Date Initial Exam Date Initial Exam Provider Initial Ultrasound Date Last Menstrual Period Date Ultra Sound Weeks Gestation 0 Eighteen To Twenty Week Sushant Update Ultra Sound Date Fundal Height At Umbil Quickening Date Ultra Sound Latest Weeks Gestation Final Sushant Confirmed By Final Sushant Confirmed Date Final Sushant Date Ultra Sound Latest Days Gestation 0 0 Menstrual History Last Menstrual Date Menses Monthly On Bcp Conception Prior Menses Frequency Hcg Plus Date Menarche Onset Age Delivery Information Delivery Date Delivery Type Labor Anesthesia Weeks Gestation Incision Type Labor Labor Length Hrs Delivered By Post Complications Tubal Sterilization Discharge Date Comments 4 Discharge Information Feeding Method Contraceptive Method Maternal HG B and HCT Levels Ob Episode Information Episode Created Date Number of Fetuses Patient Bloodtype Patient rh Status Prepregnancy Weight lbs Domestic Partner Domestic Partner Phone Father Name Trade Facilitator Status 07/14/19 25 1 AB Positive 230 Bishop Kroesch el CLOSED Fetus Data First Name Last Name Admitted to NICU Weight (g) Sex Living Outcome Pediatric Complications Fetus ID Race Codes Race Delivery Type Maveri ck false 3572.03 7 M true Full Term 53400 Repeat Problems Problem Notes double left renal artery Problem Name Start Date End Date Resolution Snomed Code Not e Mixed anxiety and depressive disorder 07/13/2024 [id number] Past history of section 10/16/2022 [id number] Deliveries by [id number] to repeat , wants BTL Hypertension AND/OR vomiting complicating childbirth AND/OR puerperium 12/27/2024 [id number] delivery a t 37 weeks 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 Body mass index 30+ - obesity [id number] nst 37wks Sushant Calculation Initial Sushant Date Initial Exam Date Initial Exam Provider Initial Ultrasound Date Last Menstrual Period Date Ultra Sound Weeks Gestation 01/21/2025 06/20/2024 06/07/2024 7 Eighteen To Twenty Week Sushant Update Ultra Sound Date Fundal Height At Umbil Quickening Date Ultra Sound Latest Weeks Gestation Final Sushant Confirmed By Final Sushant Confirmed Date Final Sushant Date Ultra Sound Latest Days Gestation 0 01/22/20 25 0 Pre-kerri Flowsheet Flowsheet Date 07/13/2024 Guerrero Score Blood Edema Fundus Height Fundus Units Glucose Ketones Leukocytes Nitrite Labor Signs Protein Cervic Dilation Cervic Effacement Cervic Station neg none none trace Type Weight in lbs Pre/Post Dialysis Refused Weight 231.372601654509 BP Diastolic BP Location Tested BP Systolic BP Type 83 125 Fetus Heart Rate Present Fetus Movement A No Comments this patient is a *34year-ol d multiparous female at 12 weeks' gestation who presents for initial care. She has a history of t delivery and would like to repeat.. Her medical, surgical, obstetric history is unremarkable. She is vaccinated. She was given precautions recommendations for . We talked about vaccines in . Talked about care in detail. She is having genetic testing. She had a normal 12 week ultrasound. To begin routine care. Flowsheet Date 08/10/2024 Guerrero Score Blood Edema Fundus Height Fundus Units Glucose Ketones Leukocytes Nitrite Labor Signs Protein Cervic Dilation Cervic Effacement Cervic Station Type Weight in lbs Pre/Post Dialysis Refused Weight 226.755906129810 BP Diastolic BP Location Tested BP Systolic BP Type 78 L arm 117 sitting Fetus Heart Rate Present A 147 Present Fetus Movement A No Comments no complaints, no problems, routine care, no contractions, no vaginal bleeding, no loss of fluid, no cramping Flowsheet Date 09/07/2024 Guerrero Score Blood Edema Fundus Height Fundus Units Glucose Ketones Leukocytes Nitrite Labor Signs Protein Cervic Dilation Cervic Effacement Cervic Station Type Weight in lbs Pre/Post Dialysis Refused BP Diastolic BP Location Tested BP Systolic BP Type Fetus Heart Rate Present Fetus Movement Comments Flowsheet Date 09/07/2024 Guerrero Score Blood Edema Fundus Height Fundus Units Glucose Ketones Leukocytes Nitrite Labor Signs Protein Cervic Dilation Cervic Effacement Cervic Station neg none Type Weight in lbs Pre/Post Dialysis Refused Weight 233.130748921672 BP Diastolic BP Location Tested BP Systolic BP Type 80 122 Fetus Heart Rate Present Fetus Movement A Yes Comments Patient is having some issue s with constipation. ok for miralax or colace, reviewed anatomy incomplete, dbl renal artery +FM, doing well rpt anatomy in 4 weeks Flowsheet Date 10/05/2024 Guerrero Score Blood Edema Fundus Height Fundus Units Glucose Ketones Leukocytes Nitrite Labor Signs Protein Cervic Dilation Cervic Effacement Cervic Station Type Weight in lbs Pre/Post Dialysis Refused BP Diastolic BP Location Tested BP Systolic BP Type Fetus Heart Rate Present Fetus Movement Comments Flowsheet Date 10/05/2024 Guerrero Score Blood Edema Fundus Height Fundus Units Glucose Ketones Leukocytes Nitrite Labor Signs Protein Cervic Dilation Cervic Effacement Cervic Station Type Weight in lbs Pre/Post Dialysis Refused Weight 237.9757887141 BP Diastolic BP Location Tested BP Systolic BP Type 82 L arm 127 sitting Fetus Heart Rate Present Fetus Movement Comments anatomy complete, doing well +FM, education and precautions, gct and schedule c/s next visit f/u 4 weeks Flowsheet Date 11/07/2024 Guerrero Score Blood Edema Fundus Height Fundus Units Glucose Ketones Leukocytes Nitrite Labor Signs Protein Cervic Dilation Cervic Effacement Cervic Station trace neg Type Weight in lbs Pre/Post Dialysis Refused Weight 241.330674645618 BP Diastolic BP Location Tested BP Systolic BP Type 75 L arm 120 sitting Fetus Heart Rate Present A 143 Present Fetus Movement A Yes Comments no complaints, no problems, routine care, no contractions, no vaginal bleeding, no loss of fluid, no cramping Flowsheet Date 11/23/2024 Guerreor Score Blood Edema Fundus Height Fundus Units Glucose Ketones Leukocytes Nitrite Labor Signs Protein Cervic Dilation Cervic Effacement Cervic Station 145 cm Type Weight in lbs Pre/Post Dialysis Refused 240.369445329058 BP Diastolic BP Location Tested BP Systolic BP Type 77 L arm 113 sitting Fetus Heart Rate Present Fetus Movement A Yes Comments +FM doing well, call for pre admit c/s 01/16 education and precautions f/u 2 weeks Flowsheet Date 12/05/2024 Guerrero Score Blood Edema Fundus Height Fundus Units Glucose Ketones Leukocytes Nitrite Labor Signs Protein Cervic Dilation Cervic Effacement Cervic Station Type Weight in lbs Pre/Post Dialysis Refused BP Diastolic BP Location Tested BP Systolic BP Type Fetus Heart Rate Present Fetus Movement Comments Flowsheet Date 12/09/2024 Guerrero Score Blood Edema Fundus Height Fundus Units Glucose Ketones Leukocytes Nitrite Labor Signs Protein Cervic Dilation Cervic Effacement Cervic Station Type Weight in lbs Pre/Post Dialysis Refused Weight 242.450493678524 BP Diastolic BP Location Tested BP Systolic BP Type 87 L arm 126 sitting Fetus Heart Rate Present A 155 Fetus Movement A Yes Comments Doing well, good movem ent. No bleeding or LOF. Irregular contractions, discussed precautions to present to the hospital. GBS for next visit. EFW 68%, vertex. Needs to schedule preadmission. RTC 2 weeks. Flowsheet Date 12/21/2024 Guerrero Score Blood Edema Fundus Height Fundus Units Glucose Ketones Leukocytes Nitrite Labor Signs Protein Cervic Dilation Cervic Effacement Cervic Station Type Weight in lbs Pre/Post Dialysis Refused Weight 243.159930240332 BP Diastolic BP Location Tested BP Systolic BP Type 84 L arm 142 sitting Fetus Heart Rate Present Fetus Movement A Yes Comments ? rupture send to ld denies ramirez visual changes, will check labs as well, precautions and education f/u one week Flowsheet Date 12/27/2024 Guerrero Score Blood Edema Fundus Height Fundus Units Glucose Ketones Leukocytes Nitrite Labor Signs Protein Cervic Dilation Cervic Effacement Cervic Station Type Weight in lbs Pre/Post Dialysis Refused 249.790890846561 BP Diastolic BP Location Tested BP Systolic BP Type 87 L arm 143 sitting Fetus Heart Rate Present Fetus Movement A Yes Comments Doing well, good movem ent. No bleeding. Irregular contractions. Discussed diagnosis of gHTN due to 2nd elevated BP. Will schedule c section at 37 weeks. Return precautions discussed. GBS collected. Flowsheet Date 01/02/2025 Guerrero Score Blood Edema Fundus Height Fundus Units Glucose Ketones Leukocytes Nitrite Labor Signs Protein Cervic Dilation Cervic Effacement Cervic Station Type Weight in lbs Pre/Post Dialysis Refused BP Diastolic BP Location Tested BP Systolic BP Type Fetus Heart Rate Present Fetus Movement Comments Flowsheet Date 01/09/2025 Guerrero Score Blood Edema Fundus Height Fundus Units Glucose Ketones Leukocytes Nitrite Labor Signs Protein Cervic Dilation Cervic Effacement Cervic Station Type Weight in lbs Pre/Post Dialysis Refused 236.908818962087 BP Diastolic BP Location Tested BP Systolic BP Type 93 L arm 160 sitting 92 R arm 170 sitting 88 R arm 154 sitting Fetus Heart Rate Present Fetus Movement Comments Menstrual History Last Menstrual Date Menses Monthly On Bcp Conception Prior Menses Frequency Hcg Plus Date Menarche Onset Age Delivery Information Delivery Date Delivery Type Labor Anesthesia Weeks Gestation Incision Type Labor Labor Length Hrs Delivered By Post Complications Tubal Sterilization Discharge Date Comments 5 Induce d 37.2 Low Transvers e false Discharge Information Feeding Method Contraceptive Method Maternal HG B and HCT Levels Breast
[2025-01-27] MEDS: MAGNESIUM SULF 4 GM/WATER100ML 4 GM/100 ML BAG IVPB (11:48)
[2025-01-27] MEDS: MAGNESIUM SULF 20GM/WATER500ML 500 ML 50 MG IV CONT (13:08)
[2025-01-27] MEDS: LACTATED RINGERS 1,000 ML 75 ML IV CONT (13:08)
[2025-01-27] MEDS: ACETAMINOPHEN 500 MG TABLET 1000 MG PO (14:20)
[2025-01-27] MEDS: IBUPROFEN 600 MG TABLET PO (16:48)
[2025-01-27] MEDS: METOCLOPRAMIDE HCL INJ 10 MG/2 ML VIAL IV PUSH (18:55)
[2025-01-27] MEDS: LABETALOL HCL 100 MG TABLET 300 MG PO (20:46)
--- NOTE | 2025-01-27 21:30 | PC.NURSE ---
1843- RN notified Dr. Whitehead that patient is still complaining of a headache and is rating it about a 2-3/10 on the pain scale. RN notified MD that patient is not in the window to receive Tylenol or Motrin at this time. MD gave orders for Benadryl and Reglan, see 2010- RN notified Dr. Whitehead of VS and mag assessment. RN clarified orders for home meds, Dr. Whitehead gave orders to give patient her usual dose of labetalol but to increase the dose to TID. also gave orders to stop mag infusion after 12 hours from start time.
[2025-01-28] VITALS: BP 143/84; PULSE 70; RESP 18; TEMP 36.9; O2SAT 99
[2025-01-28] MEDS: IBUPROFEN 600 MG TABLET PO ×2 (01:20→08:26)
[2025-01-28] MEDS: ACETAMINOPHEN 500 MG TABLET 1000 MG PO ×2 (01:20→08:25)
[2025-01-28 05:07] VITALS: PULSE 72
[2025-01-28] MEDS: LABETALOL HCL 100 MG TABLET 300 MG PO (05:07)
--- NOTE | 2025-01-28 05:23 | PM.OBPNVD ---
OB - PN: Subj Subjective Date/time seen: 01/28/25 05:23 Interval history: HD#1 admitted for PP preeclampsia Headache improved, 04/22 Otherwise asymptomatic MgSO4 off since 0100 OB - PN: Obj Data Labs 01/27/25 10:13 01/27/25 10:13 Labs: Laboratory Results - last 24 hr 01/27/25 01/27/25 01/27/25 10:13 10:13 10:17 WBC 6.7 RBC 3.77 L Hgb 10.8 L Hct 33.5 L MCV 88.9 MCH 28.6 MCHC 32.2 RDW 12.8 Plt Count 291 MPV 10.6 H Immature Gran % (Auto) 0.9 H Neut % (Auto) 59.3 Lymph % (Auto) 27.4 [place] % (Auto) 5.7 Eos % (Auto) 6.1 H Baso % (Auto) 0.6 Lymph # (Auto) 1.83 [place] # (Auto) 0.4 Eos # (Auto) 0.4 H Baso # (Auto) 0.0 Abs Immat Gran (auto) 0.06 H Absolute Neuts (auto) 4.0 Absolute Nucleated RBC 0.000 Nucleated RBC % 0.0 PT 13.6 INR 1.0 APTT 25.7 Sodium 139 Potassium 3.7 Chloride 107 Carbon Dioxide 26 Anion Gap 6 BUN 10 Creatinine 0.93 Estim Creat Clear Calc 93 Estimated GFR > 60 Glucose 82 Lactic Acid 0.9 Uric Acid 7.2 Calcium 8.5 Magnesium 2.0 Total Bilirubin 0.3 AST 21 ALT 21 Alkaline Phosphatase 60 Lactate Dehydrogenase 200 NT-Pro-B Natriuret Pep 502 H Cancelled Total Protein 7.0 Albumin 3.6 Urine Color Yellow Urine Appearance Clear Urine pH 6.0 Ur Specific [place] 1.013 Urine Protein Negative Urine Glucose (UA) Negative Urine Ketones Negative Ur Blood (Man) 1+ H Urine Nitrate Negative Urine Bilirubin Negative Urine Urobilinogen 0.2 Leukocyte Esterase Rfl Trace H Urine RBC 6-10 H Urine WBC 0-5 Ur Squamous Epith Cells None seen Urine Bacteria None seen Urine Casts 0-2 Imaging Radiologist's impression: Impressions Chest X-Ray 01/27/25 10:54 Impression: No acute cardiopulmonary abnormality. OB - PN A/P Assessment and Plan (1) Preeclampsia in period: Code(s): O14.95 - Unspecified pre-eclampsia, complicating the puerperium Status: Acute Assessment and Plan: - asymptomatic this morning - labs wnl - BP mild range overnight - increase labetalol to 300 TID - monitor BP this morning, if well controlled, ok to d/c home Time Spent With Patient Time: Total time spent is greater than 50% in coordination of care (as documented) at patient's floor/unit and/or counseling patient: Review of Systems Review of Systems: All systems reviewed & are unremarkable except as noted in HPI and below Exam Const: General: comfortable and no acute distress Orientation/consciousness: patient oriented x3 Resp: Effort & Inspection: normal respiratory effort
[2025-01-28 08:19] VITALS: BP 145/81; PULSE 66; RESP 17; TEMP 36.4; O2SAT 97
[2025-01-28 08:25] VITALS: TEMP 36.4
--- NOTE | 2025-01-28 11:04 | PC.NURSE ---
Called Dr. Whitehead and notified of BPs taken at 0600, 0800, and 1000. Order received to dc patient to home. Dr. Whitehead stated she already sent order to pt. home pharmacy for the increased labetalol dosage. Also stated her office would reach out to the patient on tuesday 01/30 to schedule a follow up appointment. Dr. Whitehead stated pt. can check BP at home 1 hour after taking BP med or can take outside of that time frame if not feeling well.
--- NOTE | 2025-02-08 08:14 | PM.OBTRLD ---
OB - Triage/Final Diagnosis Visit Information Comments/Additional reasons for admission: I have assessed the risk for this patient, Emelina Frank, and determined that she would benefit from observation care. Evaluation Laboratory results: Laboratory Tests 01/27/25 01/27/25 01/27/25 10:13 10:13 10:17 WBC 6.7 RBC 3.77 L Hgb 10.8 L Hct 33.5 L MCV 88.9 MCH 28.6 MCHC 32.2 RDW 12.8 Plt Count 291 MPV 10.6 H Immature Gran % (Auto) 0.9 H Neut % (Auto) 59.3 Lymph % (Auto) 27.4 [place] % (Auto) 5.7 Eos % (Auto) 6.1 H Baso % (Auto) 0.6 Lymph # (Auto) 1.83 [place] # (Auto) 0.4 Eos # (Auto) 0.4 H Baso # (Auto) 0.0 Abs Immat Gran (auto) 0.06 H Absolute Neuts (auto) 4.0 Absolute Nucleated RBC 0.000 Nucleated RBC % 0.0 PT 13.6 INR 1.0 APTT 25.7 Sodium 139 Potassium 3.7 Chloride 107 Carbon Dioxide 26 Anion Gap 6 BUN 10 Creatinine 0.93 Estim Creat Clear Calc 93 Estimated GFR > 60 Glucose 82 Lactic Acid 0.9 Uric Acid 7.2 Calcium 8.5 Magnesium 2.0 Total Bilirubin 0.3 AST 21 ALT 21 Alkaline Phosphatase 60 Lactate Dehydrogenase 200 NT-Pro-B Natriuret Pep 502 H Cancelled Total Protein 7.0 Albumin 3.6 Urine Color Yellow Urine Appearance Clear Urine pH 6.0 Ur Specific [place] 1.013 Urine Protein Negative Urine Glucose (UA) Negative Urine Ketones Negative Ur Blood (Man) 1+ H Urine Nitrate Negative Urine Bilirubin Negative Urine Urobilinogen 0.2 Leukocyte Esterase Rfl Trace H Urine RBC 6-10 H Urine WBC 0-5 Ur Squamous Epith Cells None seen Urine Bacteria None seen Urine Casts 0-2 Final Diagnosis (1) Preeclampsia in period: Code(s): O14.95 - Unspecified pre-eclampsia, complicating the puerperium Status: Acute
--- NOTE | 2025-02-08 08:14 | WPDOBADMIT ---
Obstetrics - Admit Note Admission Note: record reviewed. No pertinent additions to the history and/or any subsequent changes in the physical findings that are not consistent with the expected course of the were found. Patient admitted for preeclampsia with severe features by BPs. MgSO4 for seizure prophylaxis. Continue to optimize BP treatment. Monitor labs Additions to the history and/or subsequent changes in the physical findings follow. None.
--- NOTE | 2025-02-08 08:15 | P.DS_ITS ---
DS: Admitting Diagnosis Discharge Date 01/28/25 Admitting Diagnosis preeclampsia with severe features DS: Discharge Diagnosis Discharge Diagnosis (1) Preeclampsia in period: Code(s): O14.95 - Unspecified pre-eclampsia, complicating the puerperium Status: Acute OB - DS: Summary Hospital Course Hospital Course: Patient was admitted for preeclampsia management. She was started on MgSO4 for seizure prophylaxis and labetalol was increased to 300 TID. Her headache resolved with blood pressure treatment. Her blood pressures normalized on her new BP regimen. MgSO4 was d/c'd at 12 hours due to normal blood pressures. She was stable for discharge on HD#1. OB Procedures : None OB Procedures Intrapartum: Other OB Procedures: : Other (Preeclampsia with severe features management) Time Spent with Patient Time attestation: Total time spent providing and/or coordinating discharge services: Discharge Plan Discharge Attending physician on discharge: Weston Whitehead Consulting providers: Lobito Almaguer; Edd Dozier; Mesha Dhaliwal Discharging Clinician: Weston Whitehead Anticipated Discharge Date/Time: 01/28/25 11:15 Patient Disposition: Home Activity: may shower, as tolerated and pelvic rest Diet: as tolerated Discharge Instructions: Education: PreEclampsia handout given Follow-Up: Dr. Whitehead's office to call Tuesday 01/30 to schedule Blood pressure checks BREAST CARE: * Wear a snug supportive bra. * For engorgement discomfort: Breast Feeding: * Apply warm moist washcloths * Express milk as needed to relieve engorgement * Wear loose clothing * For sore nipples: * Identify correct latch-on * Apply warm moist washcloths before and after nursing * Air dry nipples after nursing * May apply Lansinoh cream to nipples ABDOMINAL INCISION: (if applicable) Call Physician if there any concerns ACTIVITY: * Rest as much as possible. * Do not exercise or lift anything heavier than your baby (such as laundry or other children.) * Avoid stairs or driving as much as possible. * Do not put anything into the vagina. No douching, tampons, or sexual activity until seen by physician. NOTIFY PHYSICIAN IF YOU HAVE ANY QUESTIONS OR IF ANY OF THE FOLLOWING SYMPTOMS OCCUR: * If your episiotomy or incision becomes red, swollen, or more painful than what you have experienced in the hospital. * If your vaginal bleeding becomes foul smelling. * If your vaginal bleeding becomes more heavy than a period or if your bleeding changes from pink to bright red. However, you may pass an occasional walnut- sized clot once or twice for the first week . * If you experience a sharp, shooting pain in you calves. * If you discover a hard, reddened area on your breast or if you experience flu- like symptoms. * If any symptoms noted from PreEclampsia handout DIET: * Eat regular, well-balanced meals. * Drink plenty of fluids daily. If , drink to thirst. Patient Language: Emirati Stand Alone Forms: General Discharge Information Follow-up/Referrals: Weston Whitehead MD [Physician, INSIDE SALES ADVERTISING EXECUTIVE] - 1 Week Discharge Medications: New labetalol 100 mg Tablet 300 mg PO TID 30 Days Qty: 270 1RF Continued sertraline 100 mg tablet 100 mg PO DAILY oxycodone 5 mg Tablet 5 mg PO Q4H PRN (Reason: Pain Rated 4-6) 14 Days Qty: 25 0RF PNV no.95-ferrous fumarate-FA [] 28 mg iron- 800 mcg tablet 1 tablet PO DAILY ferrous sulfate [iron] 325 mg (65 mg iron) tablet 65 mg PO DAILY Date of admission: 01/27/25 10:56 Primary Care Provider: PHYSICIAN,AGRICULTURAL EDUCATION INSTRUCTOR Admitting Provider: Weston Whitehead Attending physician on admission: Weston Whitehead Condition: Stable
== END 2025-01-28 11:47 | disposition home or self-care (01) | DRG 776 ==
LOC: ANHED 10:32 → ANHOBPP 12:24
PROVIDERS: Admitting Provider Obstetrics & Gynecology; Emergency Provider Nurse Practitioner Family; Visit Provider Obstetrics & Gynecology
DX: O14.95 Unspecified pre-eclampsia, complicating the puerperium (principal)
CPT/HCPCS: 36415; 71045; 80053; 81001; 83605; 83615; 83735; 83880; 84550; 85025; 85610; 85730; 93306; 96374; 99285; A9270; J0360; J1200; J2765; J3475; J7120